=== PATIENT | female | born 2000 | race Caucasian/White ===

== ENCOUNTER 2024-04-24 08:21 | Outpatient (CLI) | payer OTHER, SELFPAY ==
--- NOTE | ~2024-04-24 | US_ITS ---
EXAMINATION: US OB transvaginal DATE: 04/24/2024 08:50 INDICATION: Uncertain dating of first trimester TECHNIQUE: Real-time pelvic ultrasound utilizing transvaginal probe was performed. The interpreting r adiologist was not present for the study. COMPARISON: None. FINDINGS: The uterus measures 12.4 x 6.4 x 5.8 cm. There is an intrauterine gestational sac. A yolk sac and fe alexandru pole are identified. The crown rump length measures 1.5 cm, which correlates with an estimated ge stational age of 7 weeks and 6 days. heart motion is identified measuring 163 beats per minute (bpm) by M-mode Doppler. The right ovary measures 3.9 x 3.6 x 1.6 cm. The left ovary measures 4.7 x 2.8 x 1.8 cm. There is no free fluid in the pelvis. IMPRESSION: 1. Single living fetus with heart rate of 163 bpm. 2. Gestational age by ultrasound of 7 weeks 6 day(s) +/- 5 day(s) with ultrasound estimated date of delivery (TONY) of 12/05/2024. Reviewed, dictated and finalized at location A. IMPRESSION: 1. Single living fetus with heart rate of 163 bpm. 2. Gestational age by ultrasound of 7 weeks 6 day(s) +/- 5 day(s) with ultraso und estimated date of delivery (TONY) of 12/05/2024.
== END 2024-04-24 08:22 ==
LOC: MICIMG 08:22
PROVIDERS: PCP Advanced Practice Midwife; Visit Provider Advanced Practice Midwife
DX: Z36.87 Encounter for antenatal screening for uncertain dates (principal); Z3A.01 Less than 8 weeks gestation of pregnancy
CPT/HCPCS: 76817

== ENCOUNTER 2024-07-06 09:44 | Outpatient (CLI) | payer OTHER, SELFPAY ==
--- NOTE | ~2024-07-06 | US_ITS ---
EXAMINATION: US OB /maternal detail DATE: 07/06/2024 10:24 INDICATION: anatomic survey. TECHNIQUE: Real-time ultrasound of the pelvis was performed. COMPARISON: Ultrasound 04/24/2024 FINDINGS: There is a single living fetus in transverse lie. The placenta is anterior, 3.1 cm from the cervix. The cervical length is 4.2 cm on transabdominal images, which is normal. heart rate is 155 beat s per minute (bpm). The amniotic fluid volume is subjectively normal. The following biometric data were obtained: Biparietal diameter (BPD): 4.3 cm; head circumference (HC): 16.0 cm; abdominal circumference (AC): 13 .2 cm; femur length (FL): 2.6 cm. These measurements are concordant. Estimated weight is 238 g +/- 36 g, which correlates with the 52nd percentile when 12/05/24 is us ed as estimated date of delivery. As single measurements, these parameters are each equal to the following estimated gestational ages: BPD: 18 weeks 6 days. HC: 18 weeks 6 days. AC: 18 weeks 5 days. FL: 18 weeks 0 days. estimated gestational age based solely on measurements from this exam is 18 weeks 4 days +/- 1 weeks 2 days. The cerebral ventricles, cerebellum, cisterna magna, nuchal fold, lip, and spine are normal. The feta l heart is not well visualized. The diaphragm, stomach, kidneys, and bladder are normal. There are tw o umbilical arteries to yield a 3-vessel cord. The cord insertion is normal. IMPRESSION: 1. Single living fetus in vertex presentation. 2. Estimated weight is 238 g +/- 36 g, which correlates with the 52nd percentile when 12/05/24 i s used as estimated date of delivery. This date was set by ultrasound on 04/24/2024. 3. heart not well visualized. Otherwise normal anatomic survey. Reviewed, dictated and finalized at location A. ING MACHINE OPERATOR ULTRASONIC IMPRESSION: 1. Single living fetus in vertex presentation. 2. Estimated weight is 238 g +/- 36 g, which correlates with the 52nd pe rcentile when 12/05/24 is used as estimated date of delivery. This date was set b y ultrasound on 04/24/2024. 3. heart not well visualized. Otherwise normal anatomic survey.
== END 2024-07-06 09:45 | disposition home or self-care (01) ==
LOC: MICIMG 09:45
PROVIDERS: PCP Advanced Practice Midwife; Visit Provider Advanced Practice Midwife
DX: Z36.9 Encounter for antenatal screening, unspecified (principal); Z3A.18 18 weeks gestation of pregnancy
CPT/HCPCS: 76805

== ENCOUNTER 2024-08-10 10:36 | Outpatient (CLI) | payer OTHER, SELFPAY ==
--- NOTE | ~2024-08-10 | US_ITS ---
Limited ULTRASOUND (Duplex and color flow interrogation techniques used for this exam.) Ordering provider: Abi Singh MD History: . Anatomy follow up . Comparison: None Findings: Number of fetuses: 1 Presentation: Vertex. Lie: Longitudinal. Placenta: Anterior. Distance from the cervix is 4.5 cm. Cervix: length is 4 cm. Amniotic fluid: Subjectively normal. heart rate: 151 SCREENING OF ANATOMY: Cerebellum: Normal. Lateral ventricles: Normal. Cisterna magna: Normal.. Four chamber heart: Normal LVOT: Normal RVOT: Normal PRESSION: Single live fetus of cephalic presentation. No definite abnormality seen. Reviewed, dictated and finalized at location A. ENT STRATEGIST
== END 2024-08-10 10:37 | disposition home or self-care (01) ==
LOC: MICIMG 10:36
PROVIDERS: PCP Obstetrics & Gynecology Gynecology; Visit Provider Obstetrics & Gynecology Gynecology
DX: Z36.9 Encounter for antenatal screening, unspecified (principal)
CPT/HCPCS: 76815

== ENCOUNTER 2024-10-06 10:16 | Outpatient (CLI) | payer OTHER, SELFPAY ==
[2024-10-06 10:50] VITALS: BP 144/79; PULSE 102; PULSE 98; BMI 46.7
[2024-10-06 11:16] VITALS: BP 143/86; PULSE 101
[2024-10-06 11:21] LABS: Add Urine Microscopic? NO; Appearance Urine Clear (Clear); Bilirubin Urine Negative (Negative); Blood Urine Negative (Negative); Color Urine Yellow (Yellow); Glucose Urine UA Negative (Negative); Ketones Urine Negative (Negative); Leukocyte Esterase Ur Negative LEU/UL (Negative); Nitrate Urine Negative (Negative); Protein Urine Negative (Negative); Specific Grav Ur 1.008 (1.001-1.035); Urobilinogen Urine 0.2 mg/dL (<2.0)
[2024-10-06 11:21] LABS: Basophils Percent Auto 0.3 % (0.2-1.2); Eosinophils Absolute Auto 0.1 K/mm3 (0-0.3); Eosinophils Percent Auto 0.9 % (0-4.4); Hematocrit 35.2 % (37.0-47.0); Hemoglobin 12.3 g/dL (12.0-15.0); Immature Granulocyte Absolute 0.19 K/mm3 (0.00-0.031); Immature Granulocyte Percent A 1.6 % (0-0.5); Lymphocytes Absolute Auto 2.26 K/mm3 (0.9-3.2); Lymphocytes Percent Auto 18.6 % (18.3-44.2); Mean Corpuscular HGB Conc 34.9 g/dl (32-36); Mean Corpuscular Volume 85.9 fl (80-100); Mean Platelet Volume 11.7 fl (7.4-10.4); Monocytes Absolute Auto 0.6 K/mm3 (0.1-0.6); Monocytes Percent Auto 5.3 % (2.6-8.5); Neutrophils Absolute Auto 8.9 K/mm3 (1.3-6.7); Neutrophils Percent Auto 73.3 % (45.5-73.1); Platelet Count Result 179 k/mm3 (150-375); Red Cell Distribution Width 12.5 % (11.5-14.5); White Blood Count 12.1 K/mm3 (4.5-10.0)
[2024-10-06 11:35] LABS: Alanine Aminotransferase 15 U/L (6-35); Albumin Level 3.4 g/dL (3.5-5.1); Alkaline Phosphatase 81 U/L (38-126); Anion Gap 7 mmol/L (4-12); Aspartate Amino Transferase 20 U/L (14-36); Bilirubin,Total 0.3 mg/dL (0.2-1.3); Blood Urea Nitrogen 8 mg/dL (7-17); Calcium 9.2 mg/dL (8.4-10.2); Carbon Dioxide 23 mmol/L (22-30); Chloride 105 mmol/L (98-107); Estimated Glomerular Filt Rate > 60; Glucose 111 mg/dL (65-110); Potassium 3.3 mmol/L (3.4-5.0); Sodium 135 mmol/L (137-145); Uric Acid 4.3 mg/dL (2.5-7.5)
[2024-10-06 11:46] VITALS: BP 128/82; PULSE 96
[2024-10-06 11:47] VITALS: BP 127/70; PULSE 96
[2024-10-06 12:01] VITALS: BP 126/69; PULSE 95
--- NOTE | 2024-10-06 12:24 | PC.NURSE ---
Dr. Singh on unit. Reviewed tracing including 15 sec variable decel at 1048- none since; NST is reactive. Discussed labs- still waiting on total protein creatinine ratio. Discussed BP's. OK to discharge to home with 24 hr urine collection when urine is back.
[2024-10-06 12:26] VITALS: BP 126/69; PULSE 95
[2024-10-06 12:31] LABS: Creatinine Urine 37.5 mg/dL; Total Protein Urine Random 24 mg/dL; Ur Ttl Prot Creatinine Ratio 0.64 mg/mg (0-0.20)
--- NOTE | 2024-10-06 14:36 | PC.NURSE ---
Dr. Singh informed total protein/ creatinine ratio was 0.64 and pt was sent home with 24 hr urine collection instructions and supplies.
== END 2024-10-06 13:27 | disposition home or self-care (01) ==
LOC: ANHOBOP 10:20 → ANHLDR 10:39
PROVIDERS: Visit Provider Obstetrics & Gynecology Gynecology
DX: O13.9 Gestational [pregnancy-induced] hypertension without significant proteinuria, unspecified trimester (principal); Z3A.00 Weeks of gestation of pregnancy not specified
CPT/HCPCS: 36415; 59025; 80053; 81003; 82570; 84156; 84550; 85025; 99199

== ENCOUNTER 2024-10-07 14:12 | Outpatient (CLI) | payer OTHER, SELFPAY ==
[2024-10-07 14:12] VITALS: BMI 46.7
[2024-10-07 15:54] LABS: Total Protein Urine Random 19 mg/dL
[2024-10-07 15:55] LABS: Creatinine Urine 54.8 mg/dL
[2024-10-07 16:39] LABS: Total Protein Urine 24 Hr 570 mg/24hr (28-141); Total Volume 24 Hour Urine 3000 ml
[2024-10-07 16:40] LABS: Creatinine 24 Hour Urine 1.6 gm/24 (0.8-1.8); Total Volume 24 Hour Urine 3000 ml
== END 2024-10-07 14:13 | disposition home or self-care (01) ==
LOC: ANHOBOP 14:17
PROVIDERS: Visit Provider Obstetrics & Gynecology Gynecology
DX: O13.9 Gestational [pregnancy-induced] hypertension without significant proteinuria, unspecified trimester (principal); Z3A.00 Weeks of gestation of pregnancy not specified
CPT/HCPCS: 81050; 82570; 84156

== ENCOUNTER 2024-10-09 05:00 | Outpatient (CLI) | payer OTHER, SELFPAY ==
[2024-10-09] VITALS (9 sets, daily range): BP systolic 142–168; BP diastolic 73–97; PULSE 88–94; TEMP 36.8
[2024-10-09 05:38] LABS: Basophils Percent Auto 0.3 % (0.2-1.2); Eosinophils Absolute Auto 0.1 K/mm3 (0-0.3); Hematocrit 33.7 % (37.0-47.0); Immature Granulocyte Absolute 0.15 K/mm3 (0.00-0.031); Immature Granulocyte Percent A 1.2 % (0-0.5); Lymphocytes Absolute Auto 2.42 K/mm3 (0.9-3.2); Lymphocytes Percent Auto 19.6 % (18.3-44.2); Mean Corpuscular HGB Conc 35.6 g/dl (32-36); Mean Corpuscular Hemoglobin 30.3 pg (26-34); Mean Corpuscular Volume 85.1 fl (80-100); Mean Platelet Volume 11.2 fl (7.4-10.4); Monocytes Absolute Auto 0.8 K/mm3 (0.1-0.6); Monocytes Percent Auto 6.2 % (2.6-8.5); Neutrophils Absolute Auto 8.9 K/mm3 (1.3-6.7); Neutrophils Percent Auto 71.7 % (45.5-73.1); Platelet Count Result 162 k/mm3 (150-375); Red Blood Count 3.96 M/mm3 (4.2-5.4); Red Cell Distribution Width 12.6 % (11.5-14.5); White Blood Count 12.4 K/mm3 (4.5-10.0)
[2024-10-09 05:44] LABS: Add Urine Microscopic? YES; Appearance Urine Turbid (Clear); Bacteria Urine None Seen /hpf; Bilirubin Urine Negative (Negative); Blood Urine Negative (Negative); Color Urine Yellow (Yellow); Glucose Urine UA Negative (Negative); Ketones Urine Negative (Negative); Leukocyte Esterase Ur Negative LEU/UL (Negative); Nitrate Urine Negative (Negative); Non Pathogenic Casts 0-2; Protein Urine Negative (Negative); Specific Grav Ur 1.009 (1.001-1.035); Squamous Epithelial Cell Urine Few /hpf (Few); Urobilinogen Urine 0.2 mg/dL (<2.0); WBC Urine 0-5 /hpf (0-3); pH Urine 7.5 (5.0-9.0)
[2024-10-09 05:48] LABS: Alanine Aminotransferase 15 U/L (6-35); Albumin Level 3.3 g/dL (3.5-5.1); Alkaline Phosphatase 77 U/L (38-126); Anion Gap 12 mmol/L (4-12); Aspartate Amino Transferase 18 U/L (14-36); Bilirubin,Total 0.3 mg/dL (0.2-1.3); Blood Urea Nitrogen 7 mg/dL (7-17); Carbon Dioxide 20 mmol/L (22-30); Chloride 105 mmol/L (98-107); Estimated Glomerular Filt Rate > 60; Glucose 114 mg/dL (65-110); Potassium 3.2 mmol/L (3.4-5.0); Sodium 137 mmol/L (137-145); Uric Acid 4.6 mg/dL (2.5-7.5)
[2024-10-09 06:16] LABS: Creatinine Urine 43.2 mg/dL; Total Protein Urine Random 29 mg/dL; Ur Ttl Prot Creatinine Ratio 0.67 mg/mg (0-0.20)
[2024-10-09] MEDS: ACETAMINOPHEN 500 MG TABLET 1000 MG PO (07:51)
--- NOTE | 2024-10-09 09:04 | P.PNOB_ITS ---
OB - Triage/Final Diagnosis Visit Information Date of evaluation: 10/09/24 Reason for evaluation: other (RUQ pain and Left lower back pain) Comments/Additional reasons for admission: I have assessed the risk for this patient, Joie Taveras, and determined that she would benefit from observation care. Evaluation Laboratory results: Laboratory Tests 10/09/24 05:27 WBC 12.4 H RBC 3.96 L Hgb 12.0 Hct 33.7 L MCV 85.1 MCH 30.3 MCHC 35.6 RDW 12.6 Plt Count 162 MPV 11.2 H Immature Gran % (Auto) 1.2 H Neut % (Auto) 71.7 Lymph % (Auto) 19.6 [place] % (Auto) 6.2 Eos % (Auto) 1.0 Baso % (Auto) 0.3 Lymph # (Auto) 2.42 [place] # (Auto) 0.8 H Eos # (Auto) 0.1 Baso # (Auto) 0.0 Abs Immat Gran (auto) 0.15 H Absolute Neuts (auto) 8.9 H Absolute Nucleated RBC 0.000 Nucleated RBC % 0.0 Sodium 137 Potassium 3.2 L Chloride 105 Carbon Dioxide 20 L Anion Gap 12 BUN 7 Creatinine 0.44 L Estim Creat Clear Calc Not Reportable Estimated GFR > 60 Glucose 114 H Uric Acid 4.6 Calcium 9.0 Total Bilirubin 0.3 AST 18 ALT 15 Alkaline Phosphatase 77 Total Protein 6.0 L Albumin 3.3 L Urine Color Yellow Urine Appearance Turbid H Urine pH 7.5 Ur Specific [place] 1.009 Urine Protein Negative Urine Glucose (UA) Negative Urine Ketones Negative Ur Blood (Man) Negative Urine Nitrate Negative Urine Bilirubin Negative Urine Urobilinogen 0.2 Leukocyte Esterase Rfl Negative Urine RBC 3-5 H Urine WBC 0-5 Ur Squamous Epith Cells Few Urine Bacteria None seen Urine Casts 0-2 U Random Total Protein 29 Urine Creatinine 43.2 Protein/Creat Ratio 2 0.67 H Vital signs: Vital Signs - 24 hr 10/09/24 05:26 10/09/24 05:31 10/09/24 06:01 Temperature Pulse Rate 94 91 94 Blood Pressure 168/89 H 153/84 H 153/97 H Blood Pressure [Left Arm] 10/09/24 06:31 10/09/24 07:01 10/09/24 07:04 Temperature Pulse Rate 90 88 93 Blood Pressure 142/86 H 150/88 H Blood Pressure [Left Arm] 10/09/24 07:07 10/09/24 07:31 10/09/24 07:51 Temperature 98.2 F Pulse Rate 91 92 Blood Pressure 150/73 H Blood Pressure [Left Arm] 153/84 H Comments: FHTs cat I Pain resolved RUQ on own. L back pain much improved with tylenol Final Diagnosis (1) Preeclampsia: Code(s): O14.90 - Unspecified pre-eclampsia, unspecified trimester Status: Acute Plan: PIH labs ok. BP stable. Reviewed preeclampsia and answered questions. (2) Back pain: Code(s): M54.9 - Dorsalgia, unspecified Status: Acute Plan: improved with tylenol. dc home.
--- NOTE | 2024-10-09 09:20 | PC.NURSE ---
Dr. Singh at bedside to evaluate patient, okay to discharge.
== END 2024-10-09 09:20 | disposition home or self-care (01) ==
LOC: ANHOBOP 05:12 → ANHOBPP 05:14
PROVIDERS: Visit Provider Obstetrics & Gynecology Gynecology
DX: O14.90 Unspecified pre-eclampsia, unspecified trimester (principal); M54.9 Dorsalgia, unspecified; O26.899 Other specified pregnancy related conditions, unspecified trimester; R10.11 Right upper quadrant pain; Z3A.00 Weeks of gestation of pregnancy not specified
CPT/HCPCS: 36415; 59025; 80053; 81001; 82570; 84156; 84550; 85025; 99199; A9270

== ENCOUNTER 2024-10-16 12:33 | Outpatient (RCR) | payer OTHER, SELFPAY ==
[2024-10-12 11:54] VITALS: BP 135/83; PULSE 96
[2024-10-14 06:00] VITALS: BP 130/80; PULSE 92
[2024-10-16 12:48] VITALS: BP 145/73; PULSE 95
== END 2024-10-31 07:53 | disposition home or self-care (01) ==
LOC: ANHOBOP 12:33
PROVIDERS: Visit Provider Obstetrics & Gynecology Gynecology
DX: O14.90 Unspecified pre-eclampsia, unspecified trimester (principal)
CPT/HCPCS: 59025

== ENCOUNTER 2024-10-16 13:15 | Outpatient (CLI) | payer OTHER, SELFPAY ==
--- NOTE | ~2024-10-16 | US_ITS ---
EXAMINATION: US OB follow up DATE: 10/16/2024 13:41 INDICATION: Expected size greater than expected for estimated gestational age TECHNIQUE: Real-time ultrasound of the pelvis was performed. The interpreting radiologist was not pre sent for the study. COMPARISON: 09/11/2024 FINDINGS: There is a single living fetus in vertex presentation. The placenta is anterior and not low-lying. F etal heart rate is 144 beats per minute (bpm). The amniotic fluid index is 13.7 cm, which is normal (5th%-95%: 8.6-24.2 cm at 32 weeks estimated gestational age). The following biometric data were obtained: BPD: 8.1 cm -> 32 weeks 5 days Head circumference: 30.0 cm -> 33 weeks 1 days Abdominal circumference: 28.9 cm -> 32 weeks 6 days Femur length: 6.1 cm -> 31 weeks 5 days These measurements are concordant. Head circumference to abdominal circumference ratio: 1.04 (normal range 0.96-1.12). Estimated weight: 2003 g (+/-) 300 g or 4 lbs. 7 oz. (+/-) 11 oz. IMPRESSION: 1. Single living fetus in vertex presentation with heart rate of 144 bpm. 2. Normal amniotic fluid index of 13.7 cm. 3. Estimated weight is 32nd percentile by Hadlock criteria when 12/05/2024 is used as the estimat ed date of delivery (TONY). Please correlate with clinical information or earlier ultrasounds for most accurate TONY. Reviewed, dictated and finalized at location A. COREMAKER IMPRESSION: 1. Single living fetus in vertex presentation with heart rate of 144 bpm. 2. Normal amniotic fluid index of 13.7 cm. 3. Estimated weight is 32nd percentile by Hadlock criteria when 12/05/2024 is used as the estimated date of delivery (TONY). Please correlate with clinical information or earlier ultrasounds for most accurate TONY.
== END 2024-10-16 13:16 | disposition home or self-care (01) ==
LOC: MICIMG 13:16
PROVIDERS: PCP Obstetrics & Gynecology Gynecology; Visit Provider Nurse Practitioner Women's Health
DX: O36.63X0 Maternal care for excessive fetal growth, third trimester, not applicable or unspecified (principal); Z3A.00 Weeks of gestation of pregnancy not specified
CPT/HCPCS: 76816

== ENCOUNTER 2024-10-20 12:10 | Inpatient (IN) | payer OTHER, SELFPAY ==
[2024-10-20] VITALS (17 sets, daily range): BP systolic 135–158; BP diastolic 70–89; PULSE 92–107; RESP 18; TEMP 36.8; BMI 46.2
[2024-10-20] MEDS: NIFEdipine 30 MG TAB.ER.24 PO (10:48)
[2024-10-20 10:57] LABS: Basophils Percent Auto 0.3 % (0.2-1.2); Eosinophils Absolute Auto 0.1 K/mm3 (0-0.3); Eosinophils Percent Auto 0.6 % (0-4.4); Hematocrit 37.5 % (37.0-47.0); Hemoglobin 13.1 g/dL (12.0-15.0); Immature Granulocyte Absolute 0.13 K/mm3 (0.00-0.031); Immature Granulocyte Percent A 1.1 % (0-0.5); Lymphocytes Absolute Auto 2.09 K/mm3 (0.9-3.2); Lymphocytes Percent Auto 17.7 % (18.3-44.2); Mean Corpuscular HGB Conc 34.9 g/dl (32-36); Mean Corpuscular Volume 85.8 fl (80-100); Mean Platelet Volume 11.2 fl (7.4-10.4); Monocytes Absolute Auto 0.5 K/mm3 (0.1-0.6); Monocytes Percent Auto 4.6 % (2.6-8.5); Neutrophils Absolute Auto 8.9 K/mm3 (1.3-6.7); Neutrophils Percent Auto 75.7 % (45.5-73.1); Platelet Count Result 181 k/mm3 (150-375); Red Blood Count 4.37 M/mm3 (4.2-5.4); Red Cell Distribution Width 12.6 % (11.5-14.5); White Blood Count 11.8 K/mm3 (4.5-10.0)
[2024-10-20 11:04] LABS: Alanine Aminotransferase 11 U/L (6-35); Albumin Level 3.5 g/dL (3.5-5.1); Alkaline Phosphatase 85 U/L (38-126); Anion Gap 7 mmol/L (4-12); Aspartate Amino Transferase 19 U/L (14-36); Bilirubin,Total 0.4 mg/dL (0.2-1.3); Blood Urea Nitrogen 7 mg/dL (7-17); Calcium 9.6 mg/dL (8.4-10.2); Carbon Dioxide 27 mmol/L (22-30); Chloride 102 mmol/L (98-107); Estimated CRCL calculation 167 ml/min; Estimated Glomerular Filt Rate > 60; Glucose 95 mg/dL (65-110); Sodium 136 mmol/L (137-145); Uric Acid 5.1 mg/dL (2.5-7.5)
[2024-10-20 11:21] LABS: Creatinine Urine 30.7 mg/dL; Total Protein Urine Random 24 mg/dL; Ur Ttl Prot Creatinine Ratio 0.78 mg/mg (0-0.20)
[2024-10-20 12:08] LABS: Add Urine Microscopic? YES; Appearance Urine Clear (Clear); Bacteria Urine None Seen /hpf; Bilirubin Urine Negative (Negative); Blood Urine Negative (Negative); Color Urine Yellow (Yellow); Glucose Urine UA Negative (Negative); Ketones Urine Negative (Negative); Leukocyte Esterase Ur Trace LEU/UL (Negative); Nitrate Urine Negative (Negative); Non Pathogenic Casts 0-2; Protein Urine Negative (Negative); RBC Urine 0-2 /hpf (0-2); Specific Grav Ur 1.006 (1.001-1.035); Squamous Epithelial Cell Urine Occasional /hpf (Few); Urobilinogen Urine 0.2 mg/dL (<2.0); WBC Urine 0-5 /hpf (0-3)
--- NOTE | 2024-10-20 12:10 | OBADM ---
This patient, Joie Taveras, admitted to the OB room OB Post 116 for observation. Patient/family oriented to hospital policies and general routines including ID bracelet, bed and alarms, visiting hours, pain management, procedures, bathroom and other care routines, personal items, smoking policy, room service/diet, and visiting hours. Patient/Family are encouraged to report perceived risks to care and to ask questions if they do not understand what they are told or what they should do.
[2024-10-20] MEDS: LABETALOL HCL 100 MG TABLET PO (16:05)
--- NOTE | 2024-10-20 17:00 | PC.NURSE ---
Dr. Singh at bedside to discuss plan of care with pt. MFM recommendation to transfer care and start magnesium. Pt declines transfer at this time. Will continue to monitor BPs, labs and symptoms.
--- NOTE | 2024-10-20 17:10 | P.HP_ITS ---
Obstetrics - Admit Note Admission Note: record reviewed. Pertinent additions to the history and/or any subsequent changes in the physical findings that are not consistent with the expected course of the were found. Additions to the history and/or subsequent changes in the physical findings follow. Patient is G1 @ 34 1/7 weeks sent from office for known preeclampsia with elevated BP. Over weekend had several BP in 160/100 range. No symptoms. She was started on Proc xl 30 mg on 10/16. BP in office today elevated so admitted for BP control. Was given additional Procardia xl 30 mg and BP's in mild range. Starting to elevate in 150's so was planning to try Labetalol. Due to protocol, I was required to get a MFM consultation. I called Dr. Mandujano at [facility] and she recommended to deliver patient and due to gestational age, transfer to them and start magnesium. After discussion with patient and her , they are declining this recommendation. The patient plans to remain here at [place] and if no other symptoms or infant issues try to wait until 35 weeks to deliver. Reviewed recommendations several times with couple. All questions answered. Informed transport team of the patient declining recommendation for transfer and delivery.
[2024-10-20] MEDS: NIFEdipine 30 MG TAB.ER.24 60 MG PO (19:59)
[2024-10-21] VITALS (29 sets, daily range): BP systolic 140–156; BP diastolic 73–96; PULSE 42–168; RESP 15–20; TEMP 36.5–37.2; O2SAT 77–100
[2024-10-21] MEDS: NIFEdipine 30 MG TAB.ER.24 60 MG PO ×2 (07:40→20:11)
--- NOTE | 2024-10-21 07:43 | PM.OBPNVD ---
OB - PN: Subj Subjective Date/time seen: 10/21/24 07:43 Interval history: No preeclampsia symptoms. Patient comments: no complaints and other (Good movement) OB - PN: Obj Data Labs 10/20/24 10:38 10/20/24 10:38 Labs: Laboratory Results - last 24 hr 10/20/24 10:38 WBC 11.8 H RBC 4.37 Hgb 13.1 Hct 37.5 MCV 85.8 MCH 30.0 MCHC 34.9 RDW 12.6 Plt Count 181 MPV 11.2 H Immature Gran % (Auto) 1.1 H Neut % (Auto) 75.7 H Lymph % (Auto) 17.7 L [place] % (Auto) 4.6 Eos % (Auto) 0.6 Baso % (Auto) 0.3 Lymph # (Auto) 2.09 [place] # (Auto) 0.5 Eos # (Auto) 0.1 Baso # (Auto) 0.0 Abs Immat Gran (auto) 0.13 H Absolute Neuts (auto) 8.9 H Absolute Nucleated RBC 0.000 Nucleated RBC % 0.0 Sodium 136 L Potassium 3.0 L Chloride 102 Carbon Dioxide 27 Anion Gap 7 BUN 7 Creatinine 0.49 L Estim Creat Clear Calc 167 Estimated GFR > 60 Glucose 95 Uric Acid 5.1 Calcium 9.6 Total Bilirubin 0.4 AST 19 ALT 11 Alkaline Phosphatase 85 Total Protein 7.0 Albumin 3.5 Urine Color Yellow Urine Appearance Clear Urine pH 7.0 Ur Specific [place] 1.006 Urine Protein Negative Urine Glucose (UA) Negative Urine Ketones Negative Ur Blood (Man) Negative Urine Nitrate Negative Urine Bilirubin Negative Urine Urobilinogen 0.2 Leukocyte Esterase Rfl Trace H Urine RBC 0-2 Urine WBC 0-5 Ur Squamous Epith Cells Occasional Urine Bacteria None seen Urine Casts 0-2 U Random Total Protein 24 Urine Creatinine 30.7 Protein/Creat Ratio 2 0.78 H OB - PN A/P Assessment and Plan (1) 34 weeks gestation of : Code(s): Z3A.34 - 34 weeks gestation of Status: Acute Assessment and Plan: 34 2/7 weeks (2) Preeclampsia: Code(s): O14.90 - Unspecified pre-eclampsia, unspecified trimester Status: Acute Assessment and Plan: Asymptomatic. Good FM. BP 140-150's/70-90's. Continue Procardia XL 60 mg BID Good urine output Continue close monitoring. Reviewed MFM recommendation again this am and patient still chooses to stay here and monitor. Time Spent With Patient Time: Total time spent is greater than 50% in coordination of care (as documented) at patient's floor/unit and/or counseling patient: Exam Const: General: comfortable Resp: Effort & Inspection: normal respiratory effort GI: GI Palp: No abdominal tenderness and Yes Soft to palpation Auscultation: other (FHTs reactive category I) Extrem: Right lower extremity: edema (trace) Left lower extremity: edema (trace)
[2024-10-22] VITALS (50 sets, daily range): BP systolic 127–148; BP diastolic 71–85; PULSE 72–110; RESP 16–18; TEMP 36.6–37.1; O2SAT 75–100; BMI 45.4
--- NOTE | 2024-10-22 07:42 | P.PNOB_ITS ---
OB - PN: Subj Subjective Date/time seen: 10/22/24 07:42 Interval history: No preeclampsia symptoms. Good FM. Patient comments: no complaints OB - PN: Obj Data Labs 10/20/24 10:38 10/20/24 10:38 OB - PN A/P Assessment and Plan (1) Preeclampsia: Code(s): O14.90 - Unspecified pre-eclampsia, unspecified trimester Status: Acute Assessment and Plan: BP's stable. Continue Procardia and close monitoring. Asymptomatic. (2) 34 weeks gestation of : Code(s): Z3A.34 - 34 weeks gestation of Status: Acute Assessment and Plan: Do GBS today Time Spent With Patient Time: Total time spent is greater than 50% in coordination of care (as documented) at patient's floor/unit and/or counseling patient: Exam 2 Narrative: abdomen soft, NT ext trace edema FHTs cat I
[2024-10-22] MEDS: NIFEdipine 30 MG TAB.ER.24 60 MG PO ×2 (08:20→20:08)
[2024-10-23] VITALS (33 sets, daily range): BP systolic 120–150; BP diastolic 60–89; PULSE 58–140; RESP 16–18; TEMP 36.3–36.9; O2SAT 75–100
[2024-10-23 05:11] LABS: Hematocrit 34.4 % (37.0-47.0); Hemoglobin 12.4 g/dL (12.0-15.0); Mean Corpuscular Hemoglobin 30.6 pg (26-34); Mean Corpuscular Volume 84.9 fl (80-100); Mean Platelet Volume 11.5 fl (7.4-10.4); Platelet Count Result 171 k/mm3 (150-375); Red Blood Count 4.05 M/mm3 (4.2-5.4); Red Cell Distribution Width 12.6 % (11.5-14.5); White Blood Count 12.9 K/mm3 (4.5-10.0)
--- NOTE | 2024-10-23 06:00 | PC.NURSE ---
Report given to Winnie Jameson RN and Garth Ocasio RN.
[2024-10-23 06:04] LABS: Alanine Aminotransferase 12 U/L (6-35); Albumin Level 3.1 g/dL (3.5-5.1); Alkaline Phosphatase 78 U/L (38-126); Anion Gap 7 mmol/L (4-12); Aspartate Amino Transferase 17 U/L (14-36); Bilirubin,Total 0.3 mg/dL (0.2-1.3); Blood Urea Nitrogen 6 mg/dL (7-17); Calcium 8.8 mg/dL (8.4-10.2); Carbon Dioxide 24 mmol/L (22-30); Chloride 104 mmol/L (98-107); Estimated CRCL calculation 185 ml/min; Estimated Glomerular Filt Rate > 60; Glucose 93 mg/dL (65-110); Potassium 2.7 mmol/L (3.4-5.0); Sodium 135 mmol/L (137-145)
--- NOTE | 2024-10-23 06:13 | PC.NURSE ---
RN notified MD of critical lab result. MD gave orders for, see MAR and new orders.
[2024-10-23] MEDS: POTASSIUM CHLORIDE 20 MEQ ER TABLET 40 MEQ PO ×2 (06:54→12:53)
[2024-10-23] MEDS: NIFEdipine 30 MG TAB.ER.24 60 MG PO ×2 (08:04→20:31)
--- NOTE | 2024-10-23 10:11 | P.PNOB_ITS ---
OB - PN: Subj Subjective Date/time seen: 10/23/24 10:11 Interval history: No preeclampsia symptoms. Good FM. Slept better. Feels well. No SOB. Patient comments: no complaints OB - PN: Obj Data Labs 10/23/24 04:55 10/23/24 05:41 Labs: Laboratory Results - last 24 hr 10/23/24 10/23/24 04:55 05:41 WBC 12.9 H RBC 4.05 L Hgb 12.4 Hct 34.4 L MCV 84.9 MCH 30.6 MCHC 36.0 RDW 12.6 Plt Count 171 MPV 11.5 H Sodium 135 L Potassium 2.7 L* Chloride 104 Carbon Dioxide 24 Anion Gap 7 BUN 6 L Creatinine 0.43 L Estim Creat Clear Calc 185 Estimated GFR > 60 Glucose 93 Calcium 8.8 Total Bilirubin 0.3 AST 17 ALT 12 Alkaline Phosphatase 78 Total Protein 6.0 L Albumin 3.1 L OB - PN A/P Assessment and Plan (1) 34 weeks gestation of : Code(s): Z3A.34 - 34 weeks gestation of Status: Acute Assessment and Plan: IUP 34 12/07 (2) Preeclampsia: Code(s): O14.90 - Unspecified pre-eclampsia, unspecified trimester Status: Acute Assessment and Plan: Stable on Procardia and bedrest. Continue close monitoring. (3) Hypokalemia: Code(s): E87.6 - Hypokalemia Status: Acute Assessment and Plan: 40 meq KCl this am and repeat at noon. Recheck in am. Plan 40 meq daily if normalized. May need more to bring up. Time Spent With Patient Time: Total time spent is greater than 50% in coordination of care (as documented) at patient's floor/unit and/or counseling patient: Exam 2 Narrative: abdomen soft, nt FHTs cat I ext trace edema
--- NOTE | 2024-10-23 14:55 | PC.NURSE ---
Dr. Parker at bedside for bedside US, and to discuss possibility of transfer to [place], [place].
--- NOTE | 2024-10-23 16:30 | PC.NURSE ---
[facility] Maternal transport team at bedside for transport, new VS taken and WNL, monitor strip reviewed, all questions answered; pt up to stretcher for transport, FOB to follow and meet pt and transport at [facility].
[2024-10-23] MEDS: ZOLPIDEM TARTRATE (*CRX) 5 MG TABLET PO (20:31)
[2024-10-24] VITALS (22 sets, daily range): BP systolic 124–160; BP diastolic 66–89; PULSE 26–238; RESP 16–18; TEMP 36.6–36.7; O2SAT 74–98
--- NOTE | 2024-10-24 06:57 | P.PNOB_ITS ---
OB - PN: Subj Subjective Date/time seen: 10/24/24 06:57 Interval history: No preeclampsia symptoms. Good FM. Slept better. Feels well. No SOB. Patient comments: no complaints Narrative: nsts good OB - PN: Obj Data Labs 10/23/24 04:55 10/23/24 05:41 OB - PN A/P Assessment and Plan (1) Preeclampsia: Code(s): O14.90 - Unspecified pre-eclampsia, unspecified trimester Status: Acute (2) Hypokalemia: Code(s): E87.6 - Hypokalemia Status: Acute Plan continue procardia and potassium Time Spent With Patient Time: Total time spent is greater than 50% in coordination of care (as documented) at patient's floor/unit and/or counseling patient: Review of Systems 2 Review of Systems: All systems reviewed & are unremarkable except as noted in HPI and below Exam 2 Const: General: cooperative, healthy appearing and comfortable Nutritional Appearance: overweight Orientation/consciousness: oriented to person, oriented to place and oriented to time Resp: Effort & Inspection: normal respiratory effort GI: Inspection: normal to inspection
[2024-10-24 07:01] LABS: Potassium 2.9 mmol/L (3.4-5.0)
[2024-10-24] MEDS: POTASSIUM CHLORIDE 20 MEQ ER TABLET 40 MEQ PO (08:06)
[2024-10-24] MEDS: NIFEdipine 30 MG TAB.ER.24 60 MG PO ×2 (09:04→21:02)
[2024-10-24] MEDS: ZOLPIDEM TARTRATE (*CRX) 5 MG TABLET PO (21:32)
[2024-10-25] VITALS (34 sets, daily range): BP systolic 129–148; BP diastolic 69–95; PULSE 25–108; RESP 14–18; TEMP 36.6–36.7; O2SAT 69–99
--- NOTE | 2024-10-25 07:55 | P.PNOB_ITS ---
OB - PN: Subj Subjective Date/time seen: 10/25/24 07:55 Interval history: No preeclampsia symptoms. Good FM. Slept better. Feels well. No SOB. Patient comments: no complaints Narrative: Non stress tests remained reactive remained reactive and blood pressure remained stable OB - PN: Obj Data Labs 10/23/24 04:55 10/24/24 06:04 OB - PN A/P Assessment and Plan (1) Hypokalemia: Code(s): E87.6 - Hypokalemia Status: Acute (2) Preeclampsia: Code(s): O14.90 - Unspecified pre-eclampsia, unspecified trimester Status: Acute (3) 34 weeks gestation of : Code(s): Z3A.34 - 34 weeks gestation of Status: Acute Plan Continue with present care Time Spent With Patient Time: Total time spent is greater than 50% in coordination of care (as documented) at patient's floor/unit and/or counseling patient: Review of Systems 2 Review of Systems: All systems reviewed & are unremarkable except as noted in HPI and below Exam 2 Const: General: cooperative, healthy appearing and comfortable O rientation/consciousness: oriented to person, oriented to place and oriented to time Resp: Effort & Inspection: normal respiratory effort GI: Inspection: normal to inspection (Soft gravid uterus)
[2024-10-25] MEDS: POTASSIUM CHLORIDE 20 MEQ ER TABLET 40 MEQ PO (08:36)
[2024-10-25] MEDS: NIFEdipine 30 MG TAB.ER.24 60 MG PO ×2 (08:37→20:38)
--- NOTE | 2024-10-25 10:57 | PC.NURSE ---
Patient sleeping at this time.
[2024-10-25] MEDS: ZOLPIDEM TARTRATE (*CRX) 5 MG TABLET PO (21:47)
[2024-10-26] VITALS (24 sets, daily range): BP systolic 130–158; BP diastolic 65–87; PULSE 73–115; RESP 16; TEMP 36.9–37.4; O2SAT 78–99
[2024-10-26 07:13] LABS: Potassium 3.2 mmol/L (3.4-5.0)
--- NOTE | 2024-10-26 07:46 | P.PNOB_ITS ---
OB - PN: Subj Subjective Date/time seen: 10/26/24 07:46 Interval history: No preeclampsia symptoms. Good FM. Feels well. No SOB. Patient comments: no complaints and other (slight increase in edema) OB - PN: Obj Data Labs 10/23/24 04:55 10/26/24 06:58 Labs: Laboratory Results - last 24 hr 10/26/24 06:58 Potassium 3.2 L OB - PN A/P Assessment and Plan (1) 35 weeks gestation of : Code(s): Z3A.35 - 35 weeks gestation of Status: Acute Assessment and Plan: 35 1/7 weeks (2) Preeclampsia: Code(s): O14.90 - Unspecified pre-eclampsia, unspecified trimester Status: Acute Assessment and Plan: stable plan to check cervix Wed. for MIL planning Time Spent With Patient Time: Total time spent is greater than 50% in coordination of care (as documented) at patient's floor/unit and/or counseling patient: Exam 2 Narrative: abdomen soft, nt FHTs cat I
[2024-10-26] MEDS: NIFEdipine 30 MG TAB.ER.24 60 MG PO ×2 (08:30→21:01)
[2024-10-26] MEDS: POTASSIUM CHLORIDE 20 MEQ ER TABLET 40 MEQ PO (08:30)
[2024-10-26] MEDS: ZOLPIDEM TARTRATE (*CRX) 5 MG TABLET PO (21:01)
[2024-10-27] VITALS (26 sets, daily range): BP systolic 130–157; BP diastolic 77–86; PULSE 59–211; RESP 16; TEMP 36.6–36.8; O2SAT 78–100
--- NOTE | 2024-10-27 07:36 | P.PNOB_ITS ---
OB - PN: Subj Subjective Date/time seen: 10/27/24 07:36 Interval history: No preeclampsia symptoms. Good FM. Feels well. No SOB. Maybe feeling contractions and feels like baby dropped. OB - PN: Obj Data Labs 10/23/24 04:55 10/26/24 06:58 OB - PN A/P Assessment and Plan (1) 35 weeks gestation of : Code(s): Z3A.35 - 35 weeks gestation of Status: Acute Assessment and Plan: 35 2/7 wks (2) Preeclampsia: Code(s): O14.90 - Unspecified pre-eclampsia, unspecified trimester Status: Acute Assessment and Plan: Stable BP. No symptoms. Plan to check cervix tomorrow and plan MIL. (3) Hypokalemia: Code(s): E87.6 - Hypokalemia Status: Acute Assessment and Plan: continue Kdur daily Time Spent With Patient Time: Total time spent is greater than 50% in coordination of care (as documented) at patient's floor/unit and/or counseling patient: Exam 2 Narrative: abdomen soft, nt ext-trace edema
[2024-10-27] MEDS: POTASSIUM CHLORIDE 20 MEQ ER TABLET 40 MEQ PO (08:24)
[2024-10-27] MEDS: NIFEdipine 30 MG TAB.ER.24 60 MG PO ×2 (08:25→20:44)
[2024-10-27] MEDS: ZOLPIDEM TARTRATE (*CRX) 5 MG TABLET PO (20:44)
[2024-10-28] VITALS (27 sets, daily range): BP systolic 119–160; BP diastolic 54–91; PULSE 78–177; RESP 16–18; TEMP 36.6–36.8; O2SAT 77–99
--- NOTE | 2024-10-28 07:22 | P.PNOB_ITS ---
OB - PN: Subj Subjective Date/time seen: 10/28/24 07:22 Interval history: No preeclampsia symptoms. Good FM. Feels well. No SOB. Maybe feeling contractions and more mucus. Patient comments: no complaints OB - PN: Obj Data Labs 10/23/24 04:55 10/26/24 06:58 OB - PN A/P Assessment and Plan (1) 35 weeks gestation of : Code(s): Z3A.35 - 35 weeks gestation of Status: Acute Assessment and Plan: 35 3/7 wks (2) Preeclampsia: Code(s): O14.90 - Unspecified pre-eclampsia, unspecified trimester Status: Acute Assessment and Plan: Plan MIL tonight. Cervadil at 4 pm (3) Hypokalemia: Code(s): E87.6 - Hypokalemia Status: Acute Assessment and Plan: recheck now Time Spent With Patient Time: Total time spent is greater than 50% in coordination of care (as documented) at patient's floor/unit and/or counseling patient: Exam 2 Narrative: abdomen soft, nt ext-trace edema cervix 1/th/-2 anterior vertex
[2024-10-28] MEDS: POTASSIUM CHLORIDE 20 MEQ ER TABLET 40 MEQ PO (08:03)
[2024-10-28 09:03] LABS: Basophils Percent Auto 0.3 % (0.2-1.2); Eosinophils Absolute Auto 0.1 K/mm3 (0-0.3); Eosinophils Percent Auto 0.9 % (0-4.4); Hematocrit 37.2 % (37.0-47.0); Hemoglobin 13.3 g/dL (12.0-15.0); Immature Granulocyte Absolute 0.12 K/mm3 (0.00-0.031); Lymphocytes Percent Auto 19.2 % (18.3-44.2); Mean Corpuscular HGB Conc 35.8 g/dl (32-36); Mean Corpuscular Hemoglobin 30.3 pg (26-34); Mean Corpuscular Volume 84.7 fl (80-100); Mean Platelet Volume 11.7 fl (7.4-10.4); Monocytes Absolute Auto 0.6 K/mm3 (0.1-0.6); Monocytes Percent Auto 5.3 % (2.6-8.5); Neutrophils Absolute Auto 8.8 K/mm3 (1.3-6.7); Neutrophils Percent Auto 73.3 % (45.5-73.1); Platelet Count Result 194 k/mm3 (150-375); Red Blood Count 4.39 M/mm3 (4.2-5.4); Red Cell Distribution Width 12.6 % (11.5-14.5)
[2024-10-28] MEDS: NIFEdipine 30 MG TAB.ER.24 60 MG PO ×2 (09:19→21:00)
[2024-10-28 09:43] LABS: Alanine Aminotransferase 12 U/L (6-35); Albumin Level 3.3 g/dL (3.5-5.1); Alkaline Phosphatase 90 U/L (38-126); Anion Gap 8 mmol/L (4-12); Aspartate Amino Transferase 18 U/L (14-36); Bilirubin,Total 0.4 mg/dL (0.2-1.3); Blood Urea Nitrogen 5 mg/dL (7-17); Carbon Dioxide 22 mmol/L (22-30); Chloride 105 mmol/L (98-107); Estimated CRCL calculation 194 ml/min; Estimated Glomerular Filt Rate > 60; Glucose 76 mg/dL (65-110); Potassium 3.2 mmol/L (3.4-5.0); Sodium 135 mmol/L (137-145)
[2024-10-28 09:56] LABS: Syphilis IgG/IgM Antibody Negative (Negative)
[2024-10-28 09:58] LABS: HIV 1/2 Ab P24 Ag Result Negative (Negative)
--- NOTE | 2024-10-28 13:10 | PC.NURSE ---
Pt went outside in a wheelchair with her to get some fresh air for about 10 minutes.
--- NOTE | 2024-10-28 14:05 | PC.NURSE ---
Pt in bed sleeping, at the bedside sleeping. I did not wake pt for vitals
--- NOTE | 2024-10-28 15:30 | PC.NURSE ---
Moved patient to labor room 105 to start the induction process.
[2024-10-28] MEDS: DINOPROSTONE 10 MG VAG INSERT VAGINAL (16:21)
[2024-10-28] MEDS: ZOLPIDEM TARTRATE (*CRX) 5 MG TABLET PO (21:16)
--- NOTE | 2024-10-28 23:16 | PC.NURSE ---
2312- RN called and stated that betamethasone had not been administered. stated that per M, betamethasone was not to be administered.
[2024-10-29] VITALS (52 sets, daily range): BP systolic 93–150; BP diastolic 44–117; PULSE 88–110; TEMP 36.6–37.3; O2SAT 98–99
[2024-10-29] MEDS: LACTATED RINGERS 1,000 ML 125 ML IV CONT ×3 (06:24→22:26)
[2024-10-29] MEDS: OXYTOCIN 30 UNITS/NS 500 ML 30 UNITS/500 ML BAG 6 UNITS IV CONT (06:25)
--- NOTE | 2024-10-29 07:41 | P.PNOB_ITS ---
OB - PN: Subj Subjective Date/time seen: 10/29/24 07:41 Interval history: No preeclampsia symptoms. Good FM. Feels well. No SOB.Feeling contractions Patient comments: no complaints OB - PN: Obj Data Labs 10/28/24 08:50 10/28/24 08:50 Labs: Laboratory Results - last 24 hr 10/28/24 08:50 WBC 12.0 H RBC 4.39 Hgb 13.3 Hct 37.2 MCV 84.7 MCH 30.3 MCHC 35.8 RDW 12.6 Plt Count 194 MPV 11.7 H Immature Gran % (Auto) 1.0 H Neut % (Auto) 73.3 H Lymph % (Auto) 19.2 [place] % (Auto) 5.3 Eos % (Auto) 0.9 Baso % (Auto) 0.3 Lymph # (Auto) 2.30 [place] # (Auto) 0.6 Eos # (Auto) 0.1 Baso # (Auto) 0.0 Abs Immat Gran (auto) 0.12 H Absolute Neuts (auto) 8.8 H Absolute Nucleated RBC 0.000 Nucleated RBC % 0.0 Sodium 135 L Potassium 3.2 L Chloride 105 Carbon Dioxide 22 Anion Gap 8 BUN 5 L Creatinine 0.41 L Estim Creat Clear Calc 194 Estimated GFR > 60 Glucose 76 Calcium 9.0 Total Bilirubin 0.4 AST 18 ALT 12 Alkaline Phosphatase 90 Total Protein 6.0 L Albumin 3.3 L Syphilis IgG/IgM Ab Negative RPR Titer Cancelled RPR Cancelled RPR Titer Add Testing Cancelled T.pallidum Ab (FTA-ABS) Cancelled T.pall Ab(FTA-ABS)Reflex Cancelled HIV 1&2 Ab/P24 Ag 4thGn Negative Blood Type O Positive Antibody Screen Negative OB - PN A/P Assessment and Plan (1) 35 weeks gestation of : Code(s): Z3A.35 - 35 weeks gestation of Status: Acute Assessment and Plan: 35 4/7 wks (2) Preeclampsia: Code(s): O14.90 - Unspecified pre-eclampsia, unspecified trimester Status: Acute Assessment and Plan: MIL in progress. continue pitocin (3) Hypokalemia: Code(s): E87.6 - Hypokalemia Status: Acute Time Spent With Patient Time: Total time spent is greater than 50% in coordination of care (as documented) at patient's floor/unit and/or counseling patient: Exam 2 Narrative: cervix 1-2/-2 AROM vertex clear fluid FHTs Cat I
[2024-10-29] MEDS: POTASSIUM CHLORIDE 20 MEQ ER TABLET 40 MEQ PO (09:17)
[2024-10-29] MEDS: NIFEdipine 30 MG TAB.ER.24 60 MG PO ×2 (09:17→20:59)
--- NOTE | 2024-10-29 23:23 | P.PNAN_ITS ---
Anes - Eval Pre Procedure Procedure: Labor Epidural Date/Time: 10/29/24 23:23 Surgeon: Samantha Preop Diagnosis: Labor Pain Pre Op Diagnosis: IOL Patient Data Age: 24 Gender: F Height: 1.55 m Weight: 109.7 kg Last Vital Signs Temp 36.6 C 10/29/24 20:00 Pulse 91 10/29/24 23:00 Resp 16 10/28/24 11:56 BP 145/91 H 10/29/24 23:00 Pulse Ox 98 10/28/24 15:38 O2 Del Method Room Air 10/29/24 18:30 Allergies Allergy/AdvReac Type Severity Reaction Status Date / Time No Known Allergies Allergy Verified 10/22/24 07:34 Home Medications ?Medication ?Instructions ?Recorded ?Confirmed ?Type nifedipine 60 mg tablet,extended 60 mg PO BID #60 tabs 10/20/24 Rx release 24 hr (Procardia XL) aspirin 81 mg tablet,delayed 81 mg PO DAILY 10/22/24 10/22/24 History release (Adult Low Dose Aspirin) cholecalciferol (vitamin D3) 250 10,000 unit PO .QOD 10/22/24 10/22/24 History mcg (10,000 unit) capsule docusate sodium 100 mg capsule 100 mg PO DAILY 10/22/24 10/22/24 History (Colace) magnesium 250 mg tablet 500 mg PO DAILY 10/22/24 10/22/24 History vit no.95-ferrous 1 tablet PO DAILY 10/22/24 10/22/24 History fumarate 28 mg-folic acid 800 mcg tablet () Patient hx anesthesia problems: none Family hx anesthesia problems: none Results Review: All pre-operative results and documents have been reviewed as part of the pre- operative evaluation. PENDING SALE TO [facility] Family History Family History Father Hypertension Mother Hypertension Social History Social History Smoking status: Never smoker Alcohol intake: never Substance use: never Do You Feel Safe in your Home?: Yes Lack of Transportation: No Lack of Food: Never True Current Housing: I Have Housing Concerned About Future Housing: No Difficulty Paying Gas/Electric Bills: No Difficulty Paying for Meds: No Currently Unemployed: No Education: Bachelor's Degree Difficulty w/ Childcare or Family Care: No Living arrangements: with family Gender identity (if verbalized by the patient): Female Spiritual care concerns: No Comments Pt admitted for preecplamsia, currently asymptomatic, being treated with Procardia Exam Day of Procedure 10/29/24 23:23 Patient weight: obese Heart: regular rate and rhythm Lungs: normal air movement Airway: Mallampati scale class II Neurological: alert and oriented
[2024-10-30] VITALS (142 sets, daily range): BP systolic 79–149; BP diastolic 51–101; PULSE 72–112; RESP 16–18; TEMP 36.2–36.8; O2SAT 84–99
[2024-10-30] MEDS: LACTATED RINGERS 1,000 ML 125 ML IV CONT (02:10)
[2024-10-30] MEDS: AMPICILLIN 2 GM/NS 100 ML 2 GM/100 ML BAG IVPB (06:29)
[2024-10-30] MEDS: SODIUM CHLORIDE 0.9% IV 300 ML 600 ML I-UTERINE (06:32)
--- NOTE | 2024-10-30 07:31 | W.PM.PROC2 ---
Procedure Note - Detailed Date of Procedure 10/30/24 Pre-op Diagnosis Intrauterine at 35 and 5 7th weeks Severe preeclampsia bradycardia Post-op Diagnosis Same Procedure Performed Emergent low-transverse section Surgeon Abi Singh MD Anesthesia Epidural Findings Female went to the nursery for breathing support and is being intubated. Apgars and weight have not been performed at the start. Uterus, tubes, and ovaries appear normal. Description of Procedure I was called at 6:54 a.m. while I was at home with a bradycardic episode. On my arrival patient was in the operating room and being prepped. heart tones were in the normal range and had been for several minutes. We proceeded with an emergent . The patient was prepped and draped in the usual sterile fashion. Once anesthesia was deemed adequate a Pfannenstiel skin incision was made with a scalpel and carried down to the underlying layer of fascia which was nicked in the midline. The incision was extended laterally using Hernandez scissors. [facility] was used to tent the fascia which was then dissected off using sharp and blunt dissection. The peritoneum was tented and entered with Metzenbaum scissors. The incision was extended with blunt traction. The lower uterine segment was thin and the bladder flap was very low on the uterus. A low-transverse incision was made above the bladder and extended with blunt traction. Infant's head was brought up into the incision and fundal pressure was not causing delivery. The kiwi vacuum was used to deliver the head. The infant then fully delivered quickly and the cord was clamped and cut. The was handed to the waiting pediatric team. The placenta was removed using manual traction after cord blood and cord gases were taken. The uterus was cleared of all clots debris and exteriorized. Pitocin was infusing and the uterus was not firming up therefore Hemabate was given. The uterine incision was closed using 0 Monocryl in a running locked fashion and imbricated using same. The uterus firmed up as I was closing the incision. The cul-de-sac was irrigated and the uterus returned to the abdomen. The gutters were irrigated and the incision again inspected and noted to be hemostatic. Fascia was closed using 0 Vicryl in a running fashion. Subcutaneous tissues are irrigated and made hemostatic using Bovie cautery. Skin was closed using 4-0 Vicryl in a subcuticular fashion. Dermaflex was placed over the incision after it was dry a Mepilex dressing is placed. Sponge, needle, and instrument counts are correct per the OR staff. Patient was given Ancef prior to incision and azithromycin as the surgery proceeded. Patient was awakened and taken to recovery in stable condition. was taken to the nursery with the pediatric team. Estimated Blood Loss 650 Urine Output 300 Drains Yes (Stewart catheter) Packing No Pathology Yes (Placenta) Complications No immediate complications Condition Stable Disposition Floor
--- NOTE | 2024-10-30 07:46 | P.HP_ITS ---
H&P: HPI History of Present Illness Date/Time: 10/30/24 07:46 Chief Complaint: Preeclampsia Narrative: Patient was admitted as a G1 @ 34 1/ weeks sent from office for known preeclampsia with elevated BP. Over the prior weekend had several BP in 160/100 range. No symptoms. She was started on Proc xl 30 mg on 10/16. BP in office elevated so admitted for BP control. Was given additional Procardia xl 30 mg and BP's in mild range. Starting to elevate in 150's so was planning to try Labetalol. Due to protocol, I was required to get a M consultation. I called Dr. Mandujano at [facility] and she recommended to deliver patient and due to gestational age, transfer to them and start magnesium. After discussion with patient and her , they are declining this recommendation. The patient plans to remain here at [facility] and if no other symptoms or issues try to wait until 35 weeks to deliver. Reviewed recommendations several times with couple. All questions answered. Informed transport team of the patient declining recommendation for transfer and delivery. Patient medical induction of labor was started on 6:00 p.m. with Cervidil. Patient had change in her cervix and was ruptured on 10/22 7:00 a.m.. Pitocin was continued throughout the last 24hours. Patient had progressed to 4cm and was comfortable with her epidural. I called for report at 6:00 a.m. today and was informed that at 4:00 a.m. the patient had 2 variables of the Pitocin was discontinued. Was informed that Pitocin was still off at the time of my phone call. The report I received was that the patient continue to have occasional variables so the Pitocin was not restarted. When asked why I was not called, I was told that it was too busy to call me. I proceeded to order an amnio infusion and if the variables were occasional to restart the Pitocin. I then received a call at 6:50 a.m. from the new nurse reporting heart tones down for several minutes. I proceeded to the hospital as they removed with the meena ent to the operating room. At my arrival I went immediately to the operating room. The patient was on the operating room table being prepped and heart tones were back to her baseline for several minutes. We then proceeded with C- section please see op note. Review of Systems Review of Systems: not repeated day of surgery; patient states no changes in status COUNT INCLUDES THE [facility] Past Medical History Medical History (Updated 10/30/24 @ 07:56 by Abi Singh MD) No significant past medical history Family History Family History Father Hypertension Mother Hypertension Social History Social History Smoking status: Never smoker Alcohol intake: never Substance use: never Do You Feel Safe in your Home?: Yes Lack of Transportation: No Lack of Food: Never True Current Housing: I Have Housing Concerned About Future Housing: No Difficulty Paying Gas/Electric Bills: No Difficulty Paying for Meds: No Currently Unemployed: No Education: Bachelor's Degree Difficulty w/ Childcare or Family Care: No Living arrangements: with family Gender identity (if verbalized by the patient): Female Spiritual care concerns: No Meds Home Medications and Allergies Home Medications ?Medication ?Instructions ?Recorded ?Confirmed ?Type nifedipine 60 mg tablet,extended 60 mg PO BID #60 tabs 10/20/24 Rx release 24 hr (Procardia XL) aspirin 81 mg tablet,delayed 81 mg PO DAILY 10/22/24 10/22/24 History release (Adult Low Dose Aspirin) cholecalciferol (vitamin D3) 250 10,000 unit PO .QOD 10/22/24 10/22/24 History mcg (10,000 unit) capsule docusate sodium 100 mg capsule 100 mg PO DAILY 10/22/24 10/22/24 History (Colace) magnesium 250 mg tablet 500 mg PO DAILY 10/22/24 10/22/24 History vit no.95-ferrous 1 tablet PO DAILY 10/22/24 10/22/24 History fumarate 28 mg-folic acid 800 mcg tablet () Allergies Allergy/AdvReac Type Severity Reaction Status Date / Time No Known Allergies Allergy Verified 10/22/24 07:34 Vital Signs Vital Signs - 24 hr 10/29/24 07:59 10/29/24 09:00 10/29/24 09:01 Temperature 98.2 F Pulse Rate 106 H 109 H Blood Pressure 130/71 141/83 H Pulse Oximetry Oxygen Delivery 10/29/24 09:30 10/29/24 10:00 10/29/24 10:30 Temperature Pulse Rate 94 99 99 Blood Pressure 142/81 H 139/77 148/79 H Pulse Oximetry Oxygen Delivery 10/29/24 11:00 10/29/24 11:30 10/29/24 12:00 Temperature 98.4 F Pulse Rate 103 H 101 H 103 H Blood Pressure 137/68 142/69 H 142/85 H Pulse Oximetry Oxygen Delivery 10/29/24 12:35 10/29/24 13:00 10/29/24 13:30 Temperature 98.1 F Pulse Rate 108 H 110 H 103 H Blood Pressure 149/97 H 139/76 143/84 H Pulse Oximetry Oxygen Delivery 10/29/24 14:30 10/29/24 15:00 10/29/24 15:30 Temperature 99.1 F Pulse Rate 94 88 96 Blood Pressure 135/70 124/75 132/67 Pulse Oximetry Oxygen Delivery 10/29/24 16:00 10/29/24 16:30 10/29/24 17:00 Temperature 99 F Pulse Rate 105 H 92 102 H Blood Pressure 125/68 122/65 95/78 L Pulse Oximetry Oxygen Delivery 10/29/24 17:29 10/29/24 18:00 10/29/24 18:06 Temperature 98.1 F Pulse Rate 104 H 102 H Blood Pressure 122/82 150/83 H Pulse Oximetry Oxygen Delivery 10/29/24 18:30 10/29/24 18:30 10/29/24 19:00 Temperature Pulse Rate 100 105 H Blood Pressure 133/66 140/84 Pulse Oximetry Oxygen Delivery Room Air 10/29/24 19:30 10/29/24 20:00 10/29/24 20:30 Temperature 98 F Pulse Rate 97 92 96 Blood Pressure 143/87 H 132/72 128/80 Pulse Oximetry Oxygen Delivery 10/29/24 21:00 10/29/24 21:30 10/29/24 22:00 Temperature 97.9 F Pulse Rate 99 91 89 Blood Pressure 121/61 129/67 146/86 H Pulse Oximetry Oxygen Delivery 10/29/24 22:30 10/29/24 23:00 10/29/24 23:28 Temperature Pulse Rate 93 91 Blood Pressure 147/87 H 145/91 H Pulse Oximetry 99 Oxygen Delivery 10/29/24 23:29 10/29/24 23:31 10/29/24 23:33 Temperature Pulse Rate 101 H 99 100 Blood Pressure 140/91 H 150/85 H 136/84 Pulse Oximetry 99 Oxygen Delivery 10/29/24 23:36 10/29/24 23:38 10/29/24 23:40 Temperature Pulse Rate 98 100 Blood Pressure 142/75 H 93/44 L Pulse Oximetry 99 Oxygen Delivery 10/29/24 23:42 10/29/24 23:43 10/29/24 23:45 Temperature Pulse Rate 107 H 104 H 106 H Blood Pressure 141/117 H 124/68 124/64 Pulse Oximetry 99 Oxygen Delivery 10/29/24 23:47 10/29/24 23:48 10/29/24 23:50 Temperature Pulse Rate 99 100 Blood Pressure 122/60 123/65 Pulse Oximetry 98 Oxygen Delivery 10/29/24 23:53 10/29/24 23:57 10/29/24 23:58 Temperature Pulse Rate 102 H 101 H Blood Pressure 124/63 126/62 Pulse Oximetry 98 98 Oxygen Delivery 10/30/24 00:00 10/30/24 00:03 10/30/24 00:05 Temperature Pulse Rate 101 H 97 102 H Blood Pressure 128/64 119/58 L 119/58 L Pulse Oximetry 97 Oxygen Delivery 10/30/24 00:08 10/30/24 00:09 10/30/24 00:12 Temperature Pulse Rate 93 93 Blood Pressure 131/65 131/64 Pulse Oximetry 98 Oxygen Delivery 10/30/24 00:13 10/30/24 00:15 10/30/24 00:18 Temperature Pulse Rate 92 Blood Pressure 131/67 Pulse Oximetry 98 98 Oxygen Delivery 10/30/24 00:20 10/30/24 00:23 10/30/24 00:28 Temperature 97.1 F L Pulse Rate Blood Pressure Pulse Oximetry 98 96 Oxygen Delivery 10/30/24 00:30 10/30/24 00:33 10/30/24 00:38 Temperature Pulse Rate 92 Blood Pressure 143/73 H Pulse Oximetry 97 98 Oxygen Delivery 10/30/24 00:43 10/30/24 00:48 10/30/24 00:53 Temperature Pulse Rate Blood Pressure Pulse Oximetry 96 96 96 Oxygen Delivery 10/30/24 00:58 10/30/24 01:00 10/30/24 01:03 Temperature Pulse Rate 87 Blood Pressure 137/79 Pulse Oximetry 97 96 Oxygen Delivery 10/30/24 01:08 10/30/24 01:13 10/30/24 01:18 Temperature Pulse Rate Blood Pressure Pulse Oximetry 95 96 95 Oxygen Delivery 10/30/24 01:23 10/30/24 01:28 10/30/24 01:30 Temperature Pulse Rate 90 Blood Pressure 146/80 H Pulse Oximetry 96 96 Oxygen Delivery 10/30/24 01:33 10/30/24 01:38 10/30/24 01:43 Temperature Pulse Rate Blood Pressure Pulse Oximetry 96 96 98 Oxygen Delivery 10/30/24 01:48 10/30/24 01:53 10/30/24 01:58 Temperature Pulse Rate Blood Pressure Pulse Oximetry 97 96 96 Oxygen Delivery 10/30/24 02:00 10/30/24 02:03 10/30/24 02:08 Temperature Pulse Rate 91 Blood Pressure 137/68 Pulse Oximetry 99 97 Oxygen Delivery 10/30/24 02:13 10/30/24 02:18 10/30/24 02:23 Temperature Pulse Rate Blood Pressure Pulse Oximetry 97 97 97 Oxygen Delivery 10/30/24 02:28 10/30/24 02:30 10/30/24 02:33 Temperature Pulse Rate 97 Blood Pressure 145/85 H Pulse Oximetry 97 97 Oxygen Delivery 10/30/24 02:38 10/30/24 02:43 10/30/24 02:48 Temperature Pulse Rate Blood Pressure Pulse Oximetry 97 97 97 Oxygen Delivery 10/30/24 02:53 10/30/24 02:58 10/30/24 03:00 Temperature Pulse Rate 95 Blood Pressure 140/90 Pulse Oximetry 97 97 Oxygen Delivery 10/30/24 03:03 10/30/24 03:08 10/30/24 03:13 Temperature Pulse Rate Blood Pressure Pulse Oximetry 97 97 96 Oxygen Delivery 10/30/24 03:18 10/30/24 03:23 10/30/24 03:25 Temperature 97.8 F Pulse Rate Blood Pressure Pulse Oximetry 97 97 Oxygen Delivery 10/30/24 03:28 10/30/24 03:29 10/30/24 03:33 Temperature Pulse Rate 94 Blood Pressure 142/89 H Pulse Oximetry 97 97 Oxygen Delivery 10/30/24 03:38 10/30/24 03:43 10/30/24 03:48 Temperature Pulse Rate Blood Pressure Pulse Oximetry 96 95 95 Oxygen Delivery 10/30/24 03:53 10/30/24 03:58 10/30/24 04:00 Temperature Pulse Rate 97 Blood Pressure 147/86 H Pulse Oximetry 95 95 Oxygen Delivery 10/30/24 04:03 10/30/24 04:08 10/30/24 04:13 Temperature Pulse Rate Blood Pressure Pulse Oximetry 94 95 95 Oxygen Delivery 10/30/24 04:18 10/30/24 04:23 10/30/24 04:28 Temperature Pulse Rate Blood Pressure Pulse Oximetry 97 98 96 Oxygen Delivery 10/30/24 04:30 10/30/24 04:33 10/30/24 04:38 Temperature Pulse Rate 92 Blood Pressure 115/51 L Pulse Oximetry 95 95 Oxygen Delivery 10/30/24 04:43 10/30/24 04:48 10/30/24 04:53 Temperature Pulse Rate Blood Pressure Pulse Oximetry 95 96 95 Oxygen Delivery 10/30/24 04:58 10/30/24 04:59 10/30/24 05:03 Temperature Pulse Rate 96 Blood Pressure 131/68 Pulse Oximetry 95 97 Oxygen Delivery 10/30/24 05:08 10/30/24 05:13 10/30/24 05:18 Temperature Pulse Rate Blood Pressure Pulse Oximetry 97 95 96 Oxygen Delivery 10/30/24 05:23 10/30/24 05:28 10/30/24 05:30 Temperature Pulse Rate 111 H Blood Pressure 137/85 Pulse Oximetry 96 97 Oxygen Delivery 10/30/24 05:33 10/30/24 05:38 10/30/24 05:43 Temperature Pulse Rate Blood Pressure Pulse Oximetry 97 98 96 Oxygen Delivery 10/30/24 05:48 10/30/24 05:53 10/30/24 05:58 Temperature Pulse Rate Blood Pressure Pulse Oximetry 96 96 97 Oxygen Delivery 10/30/24 05:59 10/30/24 06:03 10/30/24 06:08 Temperature Pulse Rate 102 H Blood Pressure 145/73 H Pulse Oximetry 98 96 Oxygen Delivery 10/30/24 06:13 10/30/24 06:18 10/30/24 06:23 Temperature Pulse Rate Blood Pressure Pulse Oximetry 99 96 96 Oxygen Delivery 10/30/24 06:28 10/30/24 06:30 10/30/24 06:33 Temperature Pulse Rate 97 Blood Pressure 142/59 H Pulse Oximetry 97 98 Oxygen Delivery 10/30/24 06:38 10/30/24 06:43 10/30/24 06:48 Temperature Pulse Rate Blood Pressure Pulse Oximetry 97 97 97 Oxygen Delivery 10/30/24 07:43 10/30/24 07:45 Temperature Pulse Rate Blood Pressure Pulse Oximetry 98 98 Oxygen Delivery Exam Const: General: anxious (On operating room table) Resp: Effort & Inspection: normal respiratory effort : Manual OB Exam: dilated 4 cm (Per RN) Assessment and Plan Assessment and plan (1) 35 weeks gestation of : Code(s): Z3A.35 - 35 weeks gestation of Status: Acute Assessment and Plan: 35 and 01/06 (2) bradycardia: Status: Acute Assessment and Plan: Proceeded with emergent low-transverse section (3) Preeclampsia: Code(s): O14.90 - Unspecified pre-eclampsia, unspecified trimester Status: Acute
--- NOTE | 2024-10-30 07:56 | PM.OBDSVD ---
DS: Admitting Diagnosis Discharge Date 11/02/24 Admitting Diagnosis Intrauterine at 34-,1/7 week Preeclampsia DS: Discharge Diagnosis Discharge Diagnosis (1) Preeclampsia: Code(s): O14.90 - Unspecified pre-eclampsia, unspecified trimester Status: Acute (2) Delivery by section using transverse incision of lower segment of uterus: Code(s): O82 - Encounter for delivery without indication Status: Acute Assessment and Plan: Emergent delivery secondary to bradycardic episode OB - DS: Summary OB Procedures : NST, PIH Mgmt and Ultrasound OB Procedures Intrapartum: low cervical, transverse OB Procedures: : None Peripartum Data Delivery Method: Emergency Section Procedures: Procedures Operation Date: 10/30/24 07:00 <No data on this case meets the specified criteria> complications: none Status at Discharge Functional status at discharge: independent ambulation Time Spent with Patient Time attestation: Total time spent providing and/or coordinating discharge services: Discharge Plan Discharge Attending physician on discharge: Abi Singh Consulting providers: Joseph Ham; Odilia Escobar; Kacy Silva Discharging Clinician: Abi Singh Anticipated Discharge Date/Time: 11/01/24 07:59 Patient Disposition: Home, Self-Care Activity: may shower, may drive after 2 weeks and pelvic rest Diet: regular Wound Care Instructions: keep dressing dry Discharge Instructions: Education: Mom and Baby Guide Given to: Mother Follow-Up: Call your delivering provider's office for an appointment to be seen in: 1 Week for blood pressure and incision check. BREAST CARE: * Wear a snug supportive bra. * For engorgement discomfort: Breast Feeding: * Apply warm moist washcloths * Express milk as needed to relieve engorgement * Wear loose clothing Bottle Feeding: * May apply ice packs * For sore nipples: * Identify correct latch-on * Apply warm moist washcloths before and after nursing * Air dry nipples after nursing * May apply Lansinoh cream to nipples ABDOMINAL INCISION: (if applicable) * Allow incision to air dry * Do NOT use lotions for powders on your incision * When showering, allow soap and water to run over the incision, but do not wash incision EPISIOTOMY/PERINEAL CARE: * Change your pad frequently throughout the day * You may take sitz baths several times a day (fill your bathtub with warm water and soak for 20 minutes.) Do NOT bathe in the water * No tub baths until seen by your physician - You may shower ACTIVITY: * Rest as much as possible. * Do not exercise or lift anything heavier than your baby (such as laundry or other children.) * Avoid stairs or driving as much as possible. * Do not put anything into the vagina. No douching, tampons, or sexual activity until seen by physician. NOTIFY PHYSICIAN IF YOU HAVE ANY QUESTIONS OR IF ANY OF THE FOLLOWING SYMPTOMS OCCUR: * If your incision becomes red, swollen, or more painful than what you have experienced in the hospital. * If your vaginal bleeding becomes foul smelling. * If your vaginal bleeding becomes more heavy than a period or if your bleeding changes from pink to bright red. However, you may pass an occasional walnut-sized clot once or twice for the first week . * If you experience a sharp, shooting pain in you calves. * If you discover a hard, reddened area on your breast or if you experience flu-like symptoms. DIET: * Eat regular, well-balanced meals. * Drink plenty of fluids daily. If , drink to thirst. Call or return if temperature above 100.4? F, increased abdominal pain, increased vaginal bleeding or any new problems. Patient Language: [place] Stand Alone Forms: General Discharge Information Follow-up/Referrals: Abi Singh MD [Primary Care Provider] - 1 Week (And 6 week) Discharge Medications: New ibuprofen 600 mg tablet 600 mg PO Q6H PRN (Reason: cramps) Qty: 30 0RF hydrocodone-acetaminophen 5-325 mg tablet 1 - 2 tablet PO Q6H PRN (Reason: pain) Qty: 30 0RF Continued PNV cmb#95-ferrous fumarate-FA [] 28 mg iron- 800 mcg tablet 1 tablet PO DAILY docusate sodium [Colace] 100 mg capsule 100 mg PO DAILY cholecalciferol (vitamin D3) 250 mcg (10,000 unit) capsule 10,000 unit PO .QOD Patient Comments: Takes every Saturday, , and Saturday magnesium 250 mg tablet 500 mg PO DAILY Discontinued aspirin [Adult Low Dose Aspirin] 81 mg tablet,delayed release (DR/EC) 81 mg PO DAILY Date of admission: 10/20/24 16:37 Primary Care Provider: Abi Singh Admitting Provider: Abi Singh Attending physician on admission: Dmitri Ortega Condition: Stable
[2024-10-30] MEDS: MORPHINE SULFATE INJ (*CRX) 10 MG/ML AMP 2 MG IV PUSH ×2 (08:09→09:36)
[2024-10-30] MEDS: MAGNESIUM SULF 4 GM/WATER100ML 4 GM/100 ML BAG 100 GM (08:28)
[2024-10-30] MEDS: OXYTOCIN 30 UNITS/NS 500 ML 30 UNITS/500 ML BAG 125 UNITS IV CONT (08:43)
[2024-10-30] MEDS: MAGNESIUM SULF 20GM/WATER500ML 500 ML 50 MG (08:55)
--- NOTE | 2024-10-30 10:45 | OBPPTRN ---
Patient transferred to post room #287 via stretcher. Support person present. Oriented to unit, room, information board, rooming in, admission packet and security measures. Patient verbalizes understanding.
[2024-10-30] MEDS: SIMETHICONE 80 MG TAB.CHEW PO ×2 (11:37→17:31)
[2024-10-30] MEDS: KETOROLAC 15 MG/ML VIAL (*BKC) IV PUSH ×3 (11:37→23:30)
[2024-10-30] MEDS: ACETAMINOPHEN 325 MG TABLET 650 MG PO ×3 (11:37→23:30)
[2024-10-30] MEDS: LIDOCAINE 5% PATCH 1 PATCH TRANSDERM (11:38)
[2024-10-30] MEDS: MULTIVIT/MIN/PREN/FOL AC/IRON TABLET 1 TAB PO (13:54)
[2024-10-30] MEDS: POTASSIUM CHLORIDE 20 MEQ ER TABLET 40 MEQ PO (13:54)
--- NOTE | 2024-10-30 14:00 | PC.NURSE ---
Introductions were made and information written on her board. Breast pump provided due to baby was transferred to [facility]. Instructions given on cleaning, care, usage, that there should be no pain, pumping schedule for milk production, collection, and storage of human milk. Patient was assessed for correct placement, flange size (both nipples measured 15mm, using the size 17 flange that the patient brought along with her own personal breast pump), to pump for comfort and nipple stretching/stimulation for adequate milk production every 3 hours (8 times in 24 hours) 1-2 times at night. Parents are encouraged to record the pumping schedule on the feeding sheet.?Mother voiced understanding of the education shared along with mom/baby guide and the pump measurement, flange fit handout for additional resource information. Reported to the Primary RN.
[2024-10-30] MEDS: DOCUSATE SODIUM 100 MG CAPSULE PO (17:31)
[2024-10-30] MEDS: MAGNESIUM SULF 20GM/WATER500ML 500 ML 50 MG IV CONT (18:46)
[2024-10-31] MEDS: LACTATED RINGERS 1,000 ML 75 ML (02:39)
[2024-10-31 04:40] VITALS: BP 117/69; PULSE 100; RESP 18; TEMP 36.6; O2SAT 100
[2024-10-31 04:50] VITALS: BP 117/69; PULSE 100; RESP 18; TEMP 36.6; O2SAT 100
[2024-10-31] MEDS: MAGNESIUM SULF 20GM/WATER500ML 500 ML 50 MG IV CONT (04:51)
[2024-10-31] MEDS: ACETAMINOPHEN 325 MG TABLET 650 MG PO ×3 (05:00→17:57)
[2024-10-31] MEDS: KETOROLAC 15 MG/ML VIAL (*BKC) IV PUSH (05:00)
[2024-10-31 05:49] LABS: Basophils Percent Auto 0.2 % (0.2-1.2); Eosinophils Absolute Auto 0.1 K/mm3 (0-0.3); Eosinophils Percent Auto 0.3 % (0-4.4); Hematocrit 29.4 % (37.0-47.0); Hemoglobin 10.2 g/dL (12.0-15.0); Immature Granulocyte Absolute 0.08 K/mm3 (0.00-0.031); Immature Granulocyte Percent A 0.5 % (0-0.5); Lymphocytes Absolute Auto 1.96 K/mm3 (0.9-3.2); Lymphocytes Percent Auto 13.1 % (18.3-44.2); Mean Corpuscular HGB Conc 34.7 g/dl (32-36); Mean Corpuscular Hemoglobin 30.4 pg (26-34); Mean Corpuscular Volume 87.5 fl (80-100); Mean Platelet Volume 12.1 fl (7.4-10.4); Monocytes Absolute Auto 0.6 K/mm3 (0.1-0.6); Monocytes Percent Auto 4.2 % (2.6-8.5); Neutrophils Absolute Auto 12.2 K/mm3 (1.3-6.7); Neutrophils Percent Auto 81.7 % (45.5-73.1); Platelet Count Result 162 k/mm3 (150-375); Red Blood Count 3.36 M/mm3 (4.2-5.4); Red Cell Distribution Width 13.2 % (11.5-14.5); White Blood Count 14.9 K/mm3 (4.5-10.0)
[2024-10-31 05:58] LABS: Alanine Aminotransferase 9 U/L (6-35); Albumin Level 2.7 g/dL (3.5-5.1); Alkaline Phosphatase 84 U/L (38-126); Anion Gap 7 mmol/L (4-12); Aspartate Amino Transferase 17 U/L (14-36); Bilirubin,Total 0.4 mg/dL (0.2-1.3); Blood Urea Nitrogen 6 mg/dL (7-17); Calcium 7.4 mg/dL (8.4-10.2); Carbon Dioxide 23 mmol/L (22-30); Chloride 103 mmol/L (98-107); Estimated CRCL calculation 169 ml/min; Estimated Glomerular Filt Rate > 60; Glucose 83 mg/dL (65-110); Potassium 3.6 mmol/L (3.4-5.0); Sodium 133 mmol/L (137-145)
[2024-10-31 08:00] VITALS: BP 131/68; PULSE 97; RESP 18; TEMP 36.2; O2SAT 96
[2024-10-31] MEDS: SIMETHICONE 80 MG TAB.CHEW PO ×3 (08:12→17:57)
[2024-10-31] MEDS: MULTIVIT/MIN/PREN/FOL AC/IRON TABLET 1 TAB PO (08:12)
[2024-10-31] MEDS: POLYSACCHARIDE IRON COMPLEX 150 MG CAPSULE PO (08:13)
[2024-10-31] MEDS: POTASSIUM CHLORIDE 20 MEQ ER TABLET 40 MEQ PO (08:13)
--- NOTE | 2024-10-31 09:52 | WPDANLDPN2 ---
Anes-Prog Note L&D Date/Time: 10/31/24 09:52 Comfortable throughout: labor and section Neuraxial method: epidural Epidural/Spinal procedure site: clean & non-tender Neuro status: Neuro function grossly intact. Cardiovascular status: normal Respiratory status: normal Airway patency: baseline Mental status: baseline Post-Op hydration status: normal Vital Signs: Last Vital Signs Temp 97.9 F 10/31/24 04:50 Pulse 100 10/31/24 04:50 Resp 18 10/31/24 04:50 BP 117/69 10/31/24 04:50 Pulse Ox 100 10/31/24 04:50 O2 Del Method Room Air 10/30/24 19:25 Pain score (VAS): 3 I/O: Intake & Output 10/30/24 10/31/24 10/31/24 23:59 07:59 15:59 Intake Total 550 1050 Output Total 1250 1000 Balance -700 50 Post-procedural complaints: none Patient feedback: Patient satisfied with anesthetic care.
--- NOTE | 2024-10-31 09:53 | WPDANLDNPN2 ---
Anes-Prog Note L&D-Neuraxial Date/Time: 10/31/24 09:53 Neuraxial medications: epidural PF morphine Opiod-related complaints: none Patient feedback: Patient satisfied with post-operative pain management.
--- NOTE | 2024-10-31 11:17 | P.PNOB_ITS ---
OB - PN: Subj Subjective Date/time seen: 10/31/24 11:17 Interval history: No preeclampsia symptoms. Good FM. Feels well. No SOB.Feeling contractions Narrative: Pain OK. Tolerating diet. OB - PN: Obj Data Labs 10/31/24 05:05 10/31/24 05:05 Labs: Laboratory Results - last 24 hr 10/31/24 05:05 WBC 14.9 H RBC 3.36 L Hgb 10.2 L D Hct 29.4 L MCV 87.5 MCH 30.4 MCHC 34.7 RDW 13.2 Plt Count 162 MPV 12.1 H Immature Gran % (Auto) 0.5 Neut % (Auto) 81.7 H Lymph % (Auto) 13.1 L [place] % (Auto) 4.2 Eos % (Auto) 0.3 Baso % (Auto) 0.2 Lymph # (Auto) 1.96 [place] # (Auto) 0.6 Eos # (Auto) 0.1 Baso # (Auto) 0.0 Abs Immat Gran (auto) 0.08 H Absolute Neuts (auto) 12.2 H Absolute Nucleated RBC 0.000 Nucleated RBC % 0.0 Sodium 133 L Potassium 3.6 Chloride 103 Carbon Dioxide 23 Anion Gap 7 BUN 6 L Creatinine 0.48 L Estim Creat Clear Calc 169 Estimated GFR > 60 Glucose 83 Calcium 7.4 L Total Bilirubin 0.4 AST 17 ALT 9 Alkaline Phosphatase 84 Total Protein 5.0 L Albumin 2.7 L OB - PN A/P Plan Comments: A: POD#1, doing well. P: Routine care. Exam 2 Narrative: AVSS I/O OK ABD soft, nontender, fundus firm. Incision c/d/i. EXT nontender
[2024-10-31] MEDS: IBUPROFEN 600 MG TABLET PO ×2 (11:43→17:57)
[2024-10-31] MEDS: DOCUSATE SODIUM 100 MG CAPSULE PO ×2 (11:44→17:57)
[2024-10-31 12:15] VITALS: BP 124/78; PULSE 91; RESP 18; TEMP 36.4; O2SAT 97
--- NOTE | 2024-10-31 13:00 | PC.NURSE ---
Consulted with mother concerning needs and she shared her ability to independently use her breast pump without pain. Reinforced understanding of milk production, transition of milk, signs of adequate intake, transition of stool, prevention/relief of engorgement, plugged ducts, mastitis, responsive watching for feeding cues, the different methods of stimulating infant to breastfeed 1-3 hours after the start of the last feeding, community resources, and when to call a provider using the resource of the feeding sheet along with the mom and baby guide. Mother voiced understanding of the information shared, is confident to continue effectively her infant at home, when to call for assistance, denies any additional assistance or education at this time. Reported to the Primary RN.
[2024-10-31 16:15] VITALS: BP 125/79; PULSE 93; RESP 16; O2SAT 97
[2024-10-31] MEDS: LIDOCAINE 5% PATCH 1 PATCH TRANSDERM (17:56)
[2024-10-31 20:00] VITALS: BP 122/71; PULSE 84; RESP 18; TEMP 36.6; O2SAT 99
[2024-11-01 00:30] VITALS: BP 140/86; PULSE 90
[2024-11-01] MEDS: ACETAMINOPHEN 325 MG TABLET 650 MG PO ×4 (00:30→18:32)
[2024-11-01] MEDS: IBUPROFEN 600 MG TABLET PO ×4 (00:30→18:32)
[2024-11-01 04:50] VITALS: BP 134/88; PULSE 80
[2024-11-01 08:45] VITALS: BP 138/68; PULSE 88; RESP 18; TEMP 36.5; O2SAT 97
[2024-11-01] MEDS: POTASSIUM CHLORIDE 20 MEQ ER TABLET 40 MEQ PO (09:31)
[2024-11-01] MEDS: MULTIVIT/MIN/PREN/FOL AC/IRON TABLET 1 TAB PO (09:32)
[2024-11-01] MEDS: DOCUSATE SODIUM 100 MG CAPSULE PO ×2 (09:32→18:32)
[2024-11-01] MEDS: SIMETHICONE 80 MG TAB.CHEW PO ×3 (09:32→18:31)
--- NOTE | 2024-11-01 11:01 | P.PNOB_ITS ---
OB - PN: Subj Subjective Date/time seen: 11/01/24 11:01 Interval history: No preeclampsia symptoms. Good FM. Feels well. No SOB.Feeling contractions Narrative: Pain OK. Tolerating diet. Sitting in chair. She is afraid to ambulate or shower, and is afraid to go see baby because she doesn't think she could handle a car ride. OB - PN: Obj Data Labs 10/31/24 05:05 10/31/24 05:05 OB - PN A/P Plan day: 2 Comments: A: POD#2, doing well. P: Routine care. Exam 2 Narrative: AVSS I/O OK ABD soft, nontender, fundus firm. Incision c/d/i. EXT nontender
[2024-11-01 12:00] VITALS: BP 151/89; PULSE 91; RESP 16; TEMP 36.4; O2SAT 96
[2024-11-01 18:32] VITALS: BP 150/83; PULSE 81; RESP 16; TEMP 36.6; O2SAT 96
[2024-11-01] MEDS: LIDOCAINE 5% PATCH 1 PATCH TRANSDERM (18:32)
[2024-11-02 00:25] VITALS: BP 131/67; PULSE 85; RESP 16; TEMP 36.2; O2SAT 97
[2024-11-02] MEDS: ACETAMINOPHEN 325 MG TABLET 650 MG PO ×2 (00:25→05:57)
[2024-11-02] MEDS: IBUPROFEN 600 MG TABLET PO ×2 (00:25→05:57)
[2024-11-02 05:56] VITALS: BP 135/67; PULSE 91; RESP 18; O2SAT 97
[2024-11-02] MEDS: SIMETHICONE 80 MG TAB.CHEW PO (07:45)
[2024-11-02] MEDS: POTASSIUM CHLORIDE 20 MEQ ER TABLET 40 MEQ PO (07:45)
[2024-11-02] MEDS: DOCUSATE SODIUM 100 MG CAPSULE PO (07:45)
[2024-11-02] MEDS: MULTIVIT/MIN/PREN/FOL AC/IRON TABLET 1 TAB PO (07:46)
[2024-11-02 08:00] VITALS: BP 146/86; PULSE 81; RESP 18; TEMP 36.9; O2SAT 97
--- NOTE | 2024-11-02 08:57 | P.PNOB_ITS ---
OB - PN: Subj Subjective Date/time seen: 11/02/24 08:57 Interval history: No preeclampsia symptoms. Good FM. Feels well. No SOB.Feeling contractions Narrative: Pain OK. Tolerating diet. Would like to go home. OB - PN: Obj Data Labs 10/31/24 05:05 10/31/24 05:05 OB - PN A/P Plan day: 3 Comments: A: POD#3, doing well. P: Home to f/u office 1 week for bp and incision check. Exam 2 Narrative: AVSS ABD soft, nontender, fundus firm. Dressing dry. EXT nontender
--- NOTE | 2024-11-02 09:00 | PC.NURSE ---
Consulted with mother concerning needs and she shared her ability to independently pump without pain. Reminded patient of the importance of pumping consistently every 3 hours and at least once at night. is currently in the NICU. Reinforced understanding of milk production, transition of milk, prevention/relief of engorgement, plugged ducts, mastitis, community resources, and when to call a provider using the resource of the feeding sheet along with the mom and baby guide. Patient has a [employer] breast pump. Mother voiced understanding of the information shared, is confident to continue effectively pumping at home, when to call for assistance, denies any additional assistance or education at this time. Reported to the Primary RN.
--- NOTE | 2024-11-02 09:53 | PC.NURSE ---
Per Dr. Ortega, no need for mother to come for follow-up appointment since baby was transferred to [facility]. Mother will make appointment to be seen in doctor office at 1 week and 6 weeks.
== END 2024-11-02 10:05 | disposition home or self-care (01) | DRG 788 ==
LOC: ANHOBOP 12:21 → ANHOBPP 12:21 → ANHLDR 10-30 08:00 → ANHOB2 11-04 08:57 → ANHOBPP 11-04 08:57
PROVIDERS: Admitting Provider Obstetrics & Gynecology Gynecology; PCP Obstetrics & Gynecology Gynecology; Visit Provider Obstetrics & Gynecology
PROC: 10D00Z1 Extraction of Products of Conception, Low, Open Approach (ICD-10-PCS; CPT 59514; principal; 2024-10-30 07:00)
DX: O14.14 Severe pre-eclampsia complicating childbirth (principal); O76 Abnormality in fetal heart rate and rhythm complicating labor and delivery; O69.2XX0 Labor and delivery complicated by other cord entanglement, with compression, not applicable or unspecified; Z3A.35 35 weeks gestation of pregnancy; Z37.0 Single live birth; E87.6 Hypokalemia
CPT/HCPCS: 36415; 59025; 80053; 81001; 82570; 84132; 84156; 84550; 85025; 85027; 86593; 86703; 86850; 86900; 86901; 87081; A9270; G0378; G0432; J0290; J1885; J2270; J2274; J2590; J2795; J3475; J7030; J7120

== ENCOUNTER 2024-12-24 11:52 | Emergency (ER) | payer OTHER, SELFPAY ==
--- NOTE | ~2024-12-24 | XR_ITS ---
XR chest 2V Ordering provider: Mauricio Sarmiento MD History: 24 years Female with . cp . Comparison: None. FINDINGS: MEDIASTINUM: The cardiac silhouette is not enlarged. LUNGS: No infiltrates, effusions or pneumothorax. Granuloma seen in the left mid zone. OTHER: No free air under the diaphragm. IMPRESSION: No acute cardiopulmonary pathology. Reviewed, dictated and finalized at location A.
[2024-12-24 11:55] VITALS: BP 141/85; PULSE 90; RESP 18; TEMP 36.1; O2SAT 98
--- NOTE | 2024-12-24 12:04 | ECG_ITS ---
Test Date: 2024-12-24 15:27:01 Measurements Intervals [place] Rate: 80 P: 40 PA: 138 QRS: 24 QRSD: 97 T: 18 QT: 395 QTc: 457 Interpretive Statements SINUS RHYTHM MODERATE T-WAVE ABNORMALITY, CONSIDER ANTERIOR ISCHEMIA ABNORMAL ECG Compared to ECG 12/24/2024 12:04:37 NO SIGNIFICANT CHANGE Electronically Signed On 12-24-2024 15:33:54 CDT by Galileo Blake D.O.
--- NOTE | 2024-12-24 12:41 | ECG_ITS ---
Test Date: 2024-12-24 12:04:37 Measurements Intervals [place] Rate: 88 P: 55 MD: 134 QRS: 34 QRSD: 90 T: 32 QT: 381 QTc: 461 Interpretive Statements SINUS RHYTHM WITH SINUS ARRHYTHMIA MODERATE T-WAVE ABNORMALITY, CONSIDER ANTERIOR ISCHEMIA ABNORMAL ECG No previous ECG available for comparison Electronically Signed On 12-24-2024 13:04:31 CDT by Galileo Blake D.O.
[2024-12-24 12:45] VITALS: BP 140/83; PULSE 86; RESP 13; TEMP 36.7; O2SAT 98
[2024-12-24 12:52] VITALS: PULSE 91; O2SAT 98
[2024-12-24 13:08] LABS: Basophils Percent Auto 0.3 % (0.2-1.2); Eosinophils Absolute Auto 0.1 K/mm3 (0-0.3); Hematocrit 40.5 % (37.0-47.0); Hemoglobin 13.5 g/dL (12.0-15.0); Immature Granulocyte Absolute 0.03 K/mm3 (0.00-0.031); Immature Granulocyte Percent A 0.3 % (0-0.5); Lymphocytes Absolute Auto 1.91 K/mm3 (0.9-3.2); Lymphocytes Percent Auto 21.5 % (18.3-44.2); Mean Corpuscular HGB Conc 33.3 g/dl (32-36); Mean Corpuscular Hemoglobin 28.5 pg (26-34); Mean Corpuscular Volume 85.4 fl (80-100); Mean Platelet Volume 10.7 fl (7.4-10.4); Monocytes Absolute Auto 0.4 K/mm3 (0.1-0.6); Monocytes Percent Auto 4.8 % (2.6-8.5); Neutrophils Absolute Auto 6.4 K/mm3 (1.3-6.7); Neutrophils Percent Auto 72.1 % (45.5-73.1); Platelet Count Result 289 k/mm3 (150-375); Red Blood Count 4.74 M/mm3 (4.2-5.4); Red Cell Distribution Width 11.9 % (11.5-14.5); White Blood Count 8.9 K/mm3 (4.5-10.0)
[2024-12-24 13:18] LABS: Alanine Aminotransferase 17 U/L (6-35); Albumin Level 4.6 g/dL (3.5-5.1); Alkaline Phosphatase 84 U/L (38-126); Anion Gap 11 mmol/L (4-12); Aspartate Amino Transferase 20 U/L (14-36); Bilirubin,Total 0.2 mg/dL (0.2-1.3); Blood Urea Nitrogen 12 mg/dL (7-17); Calcium 9.6 mg/dL (8.4-10.2); Carbon Dioxide 24 mmol/L (22-30); Chloride 104 mmol/L (98-107); Estimated CRCL calculation 135 ml/min; Estimated Glomerular Filt Rate > 60; Glucose 85 mg/dL (65-110); Lipase 54 U/L (23-300); Potassium 4.1 mmol/L (3.4-5.0); Sodium 139 mmol/L (137-145)
[2024-12-24 13:26] LABS: Prothrombin Time 13.3 Seconds (11.1-14.7)
[2024-12-24 13:29] LABS: Troponin I < 0.012 ng/mL (0.000-0.034)
--- NOTE | 2024-12-24 13:31 | ED_ITS ---
HPI - Chest Pain General Chief Complaint: Chest Pain Stated Complaint: SHOB, Chest heaviness-2mths Post partem Time Seen by Provider: 12/24/24 12:56 History of Present Illness HPI narrative: 24-year-old female that is approximately 8 weeks presenting to the emergency room with chief complaint of some occasional chest heaviness shortness of breath. She called her OBGYN and has an appointment tomorrow morning to discuss this but patient states she was concerned so she came to the ER. Patient did have an episode of preeclampsia requiring emergent but she is currently off of her nifedipine and doing well. She is 8 weeks an outside the window for preeclampsia. Patient denies any seizures, no nausea, vomiting, headache, loss of consciousness, abdominal pain, back pain. No vaginal bleeding. She has been doing well postoperatively. No history of DVT or PE. Denies any leg swelling. Related Data Home Medications ?Medication ?Instructions ?Recorded ?Confirmed ?Last Taken ?Type cholecalciferol (vitamin D3) 250 10,000 unit PO .QOD 10/22/24 10/22/24 10/17/24 12:00 History mcg (10,000 unit) capsule docusate sodium 100 mg capsule 100 mg PO DAILY 10/22/24 10/22/24 10/19/24 12:00 History (Colace) magnesium 250 mg tablet 500 mg PO DAILY 10/22/24 10/22/24 10/19/24 12:00 History vit no.95-ferrous 1 tablet PO DAILY 10/22/24 10/22/24 10/19/24 12:00 History fumarate 28 mg-folic acid 800 mcg tablet () Allergies Allergy/AdvReac Type Severity Reaction Status Date / Time No Known Allergies Allergy Verified 12/24/24 12:52 Review of Systems 2 Review of Systems: As reviewed above in HPI [facility] Past Medical History Medical History No significant past medical history Family History Family History Father Hypertension Mother Hypertension Social History Social History Smoking status: Never smoker Alcohol intake: never Substance use: never Do You Feel Safe in your Home?: Yes Lack of Transportation: No Lack of Food: Never True Current Housing: I Have Housing Concerned About Future Housing: No Difficulty Paying Gas/Electric Bills: No Difficulty Paying for Meds: No Currently Unemployed: No Education: Bachelor's Degree Difficulty w/ Childcare or Family Care: No Living arrangements: with family Gender identity (if verbalized by the patient): Female Spiritual care concerns: No Exam 2 Narrative: GENERAL: [Well-appearing, well-nourished, and in no acute distress.] HEAD: [Normocephalic, atraumatic.] EYES: [PERRLA and EOMI.] ENT: Nares clear, no rhinorrhea or epistaxis. Mucous membranes moist. NECK: Supple. CHEST: [Clear to auscultation. No respiratory distress.] HEART: [Regular rate and rhythm]. No murmur heard. [Normal peripheral pulses.] ABDOMEN: [Soft, nondistended], [nontender], [No rigidity or guarding] EXTREMITIES: Normal range of motion. [No edema.] SKIN: Warm, dry, no rash. NEURO: [No focal deficits]. Alert and oriented [x3.] PSYCH: [Normal mood and affect.] Course Vital Signs Vital signs: Vital Signs Temperature 36.1 C L 12/24/24 11:55 Pulse Rate 90 12/24/24 11:55 Respiratory Rate 18 12/24/24 11:55 Blood Pressure 141/85 H 12/24/24 11:55 Pulse Oximetry 98 12/24/24 11:55 Oxygen Delivery Room Air 12/24/24 11:55 Temperature 36.7 C 12/24/24 12:45 Pulse Rate 87 12/24/24 15:26 Respiratory Rate 14 12/24/24 15:26 Blood Pressure 142/81 H 12/24/24 15:26 Pulse Oximetry 98 12/24/24 15:26 Oxygen Delivery Room Air 12/24/24 12:52 MDM - Chest Pain MDM Narrative Medical decision making narrative: 24-year-old otherwise healthy appearing female with history of preeclampsia during her last 8 weeks ago. She is off of her antihypertensive medications and doing well postoperatively from the emergent . Endorses some chest heaviness and shortness of breath intermittent but presently feeling improved just sitting in the stretcher. Denies any nausea, vomiting, headache, paresthesias, weakness, leg swelling. No history of DVT or PE. She has an unremarkable physical examination with normal vital signs. No significant hypertension, tachycardia, fever or hypoxia. Soft nontender nondistended abdomen clear breath sounds. She is outside the window for preeclampsia but she could have complications from the itself including potential thromboembolic event given she had a . Possibility of pneumonia bronchitis, ACS less likely. CBC, CMP, troponin, EKG, D-dimer obtained. Chest x-ray ordered. She was placed on tandem mill operator, pulse oximetry is frequently re-evaluated. Workup shows no leukocytosis or anemia. Normal platelet count. Electrolytes are unremarkable. Normal renal function, normal hepatic function. Negative troponin initial and 3 hour troponin. Negative D-dimer. No acute cardiopulmonary disease. Initial EKG shows sinus rhythm, no ST segment elevations, depressions but there are some inversions V1 through V5 which appears stable on the repeat EKG. No previous EKG for comparison but negative troponins which is reassuring. Patient was re-evaluated and had no complaints at this time. She remains hemodynamically stable has an unremarkable workup. She has a follow-up appointment with her OBGYN tomorrow morning which I encouraged her to keep. She is safe for discharge at this time. Medical Records Data Attestation: I reviewed the patient's medical records. Lab Data Attestation: I reviewed the patient's lab results. 12/24/24 13:01 12/24/24 13:01 Labs: Lab Results 12/24/24 12/24/24 12/24/24 Range/Units 13:01 13:01 15:39 WBC 8.9 (4.5-10.0) K/mm3 RBC 4.74 (4.2-5.4) M/mm3 Hgb 13.5 D (12.0-15.0) g/dL Hct 40.5 (37.0-47.0) % MCV 85.4 (80-100) fl MCH 28.5 (26-34) pg MCHC 33.3 (32-36) g/dl RDW 11.9 (11.5-14.5) % Plt Count 289 D (150-375) k/mm3 MPV 10.7 H (7.4-10.4) fl Immature Gran % (Auto) 0.3 (0-0.5) % Neut % (Auto) 72.1 (45.5-73.1) % Lymph % (Auto) 21.5 (18.3-44.2) % [place] % (Auto) 4.8 (2.6-8.5) % Eos % (Auto) 1.0 (0-4.4) % Baso % (Auto) 0.3 (0.2-1.2) % Lymph # (Auto) 1.91 (0.9-3.2) K/mm3 [place] # (Auto) 0.4 (0.1-0.6) K/mm3 Eos # (Auto) 0.1 (0-0.3) K/mm3 Baso # (Auto) 0.0 (0.0-0.1) K/mm3 Abs Immat Gran (auto) 0.03 (0.00-0.031) K/mm3 Absolute Neuts (auto) 6.4 (1.3-6.7) K/mm3 Absolute Nucleated RBC 0.000 (0.0-0.012) K/mm3 Nucleated RBC % 0.0 (0.0-0.2) % PT 13.3 (11.1-14.7) Seconds INR 1.0 APTT 28.1 (22.3-36.8) Seconds D-Dimer < 0.27 Cancelled (<0.48) ug/mL Sodium 139 (137-145) mmol/L Potassium 4.1 (3.4-5.0) mmol/L Chloride 104 (98-107) mmol/L Carbon Dioxide 24 (22-30) mmol/L Anion Gap 11 (4-12) mmol/L BUN 12 D (7-17) mg/dL Creatinine 0.59 L (0.7-1.0) mg/dL Estim Creat Clear Calc 135 ml/min Estimated GFR > 60 (59 - ) Glucose 85 (65-110) mg/dL Calcium 9.6 (8.4-10.2) mg/dL Total Bilirubin 0.2 (0.2-1.3) mg/dL AST 20 (14-36) U/L ALT 17 (6-35) U/L Alkaline Phosphatase 84 (38-126) U/L Troponin I < 0.012 < 0.012 (0.000-0.034) ng/mL Total Protein 8.0 (6.3-8.2) g/dL Albumin 4.6 (3.5-5.1) g/dL Lipase 54 (23-300) U/L Imaging Data Attestation: I personally reviewed and interpreted this imaging study as follows: My impression: Impressions Chest X-Ray 12/24/24 13:22 IMPRESSION: No acute cardiopulmonary pathology. ECG Data EKG #1: Attestation: I personally reviewed and interpreted this ECG as follows: ECG completion date: 12/24/24 ECG completion time: 15:27 Prior ECG tracings: not available for review Interpretation: No ST segment elevations, depressions. There are some inversions V1 through V4 which are unchanged on the 3 hour EKG. QTC 456, QRS 97, PA interval 138. Rate of 80 beats per minute. Compared to 3 hour EKG there are no acute changes. Final interpretation sinus rhythm. Discharge Plan Discharge Clinical Impression: Chest pain Patient Disposition: Home Condition: Stable Instructions: Antibiotic Form, Chest Pain (ED) Additional Instructions: Your cardiac markers and D-dimer were negative. No signs of anemia. Follow-up with your regular doctor and OBGYN tomorrow morning. Return with any new or emergent concerns. Patient Language: [place] Prescriptions: No Action PNV cmb#95-ferrous fumarate-FA [] 28 mg iron- 800 mcg tablet 1 tablet PO DAILY docusate sodium [Colace] 100 mg capsule 100 mg PO DAILY cholecalciferol (vitamin D3) 250 mcg (10,000 unit) capsule 10,000 unit PO .QOD Patient Comments: Takes every Saturday, , and Saturday magnesium 250 mg tablet 500 mg PO DAILY ibuprofen 600 mg tablet 600 mg PO Q6H PRN (Reason: cramps) Qty: 30 0RF hydrocodone-acetaminophen 5-325 mg tablet 1 - 2 tablet PO Q6H PRN (Reason: pain) Qty: 30 0RF Follow-up/Referrals: Abi Singh MD [Primary Care Provider] - Time of Disposition: 16:55 Quality HEART score for chest pain patients History: slightly suspicious ECG: normal Age: < or = to 45 years Risk factors: 1 or 2 risk factors Troponin: < or = to 1x normal limit Heart score: 1
[2024-12-24 13:37] LABS: Partial Thromboplastin Time 28.1 Seconds (22.3-36.8)
[2024-12-24 13:56] LABS: D Dimer < 0.27 ug/mL (<0.48)
[2024-12-24 14:04] VITALS: BP 128/65; PULSE 87; RESP 19; O2SAT 98
--- OUTSIDE RECORDS SUMMARY | 2024-12-24 14:36 | XMS_ITS | Clinical Summary ---
Author Organization [facility] Address [address] [place] [address] Care Team Providers Care Telephonic Rn Name Role Phone Unavailable Primary Care Provider Unavailabl e Source Comments [facility],non-owned Affiliates and Associated Physician Practices is amultiple site organization consisting of ambulatory clinics and hospital sitesin [place], [place], [place] and [place]. This disclosure is being madepursuant to the Care Everywhere program and may not contain all information available regarding this patient. Last updated 18.[facility] Social History Tobacco Use Types Packs/Day Years Used Date Smoking Tobacco: Never Assessed Comments Unknown Sex and Gender Information Value Date Recorded Sex Assigned at Female 11/04/2024 4:27 PM SPACE CONTROLLER Legal Sex Female 4:16 PM SPACE CONTROLLER Gender Identity Female 11/04/2024 4:27 PM SPACE CONTROLLER Sexual Orientation Straight 11/04/2024 4: 27 PM SPACE CONTROLLER Plan of Treatment Health Maintenance Due Date Last Done Comments PAP SMEAR 1998 HIV SCREENING 2013 HPV VACCINE (1 - 3-dose series) 2013 HEPATITIS C SCREENING 05/16/2016 DTAP/TDAP/TD VACCINES (1 - Tdap) 2017 HEPATITIS B VACCINE (1 of 3 - 19+ 3-dose series) 2017 COVID-19 VACCINE ( - 2023-2 5 season) 2024 DEPRESSION SCREENING 09/02/2024 INFLUENZA VACCINE (Season Ended) 2025 ZOSTER VACCINE (1 of 2) 2048 HIB VACCINE Aged Out No longer eligi ble based on patient's age to complete this topic MENINGOCOCCAL (Group B) VACC INE SHARED DECISION-MAKING Aged Out No longer eligibl e based on patient's age to complete this topic MENINGOCOCCAL GROUPS A/C/Y/W VACCINE Aged Out No longer eligible b ased on patient's age to complete this topic PNEUMOCOCCAL VACCINE Aged Out No long er eligible based on patient's age to complete this topic
[2024-12-24 15:26] VITALS: BP 142/81; PULSE 87; RESP 14; O2SAT 98
[2024-12-24 16:17] LABS: Troponin I < 0.012 ng/mL (0.000-0.034)
[2024-12-24 17:10] VITALS: BP 126/76; PULSE 84; RESP 17; TEMP 36.6; O2SAT 99
== END 2024-12-24 17:13 | disposition home or self-care (01) ==
PROVIDERS: Emergency Provider Student in an Organized Health Care Education/Training Program; PCP Obstetrics & Gynecology Gynecology
DX: R07.9 Chest pain, unspecified (principal); R94.31 Abnormal electrocardiogram [ECG] [EKG]
CPT/HCPCS: 36415; 71046; 80053; 83690; 84484; 85025; 85380; 85610; 85730; 93005; 99284